=== PATIENT | female | born 1945 | race American Indian/Alaskan Native ===

== ENCOUNTER 2016-04-30 13:25 | Inpatient (IN) | payer MEDICARE ==
[2016-04-30 14:14] LABS: Basophils % (Auto) 0.9 % (0.0-1.8); Eosinophils % (Auto) 0.3 % (0.0-4.3); Hematocrit 41.9 % (30.3-42.9); Mean Corpuscular HGB Conc 31 % (30-34); Mean Corpuscular Hemoglobin 26 pg (28-32); Mean Corpuscular Volume 84 fl (79-97); Platelet Count 200 K/mm3 (140-440); Red Blood Count 4.97 M/mm3 (3.65-5.03); Red Cell Distribution Width 16.6 % (13.2-15.2); White Blood Count 7.7 K/mm3 (4.5-11.0)
[2016-04-30 14:40] LABS: Calcium 10.2 mg/dL (8.4-10.2); Chloride 98.2 mmol/L (98-107); Potassium 3.7 mmol/L (3.6-5.0)
[2016-04-30] MEDS ORDERED: LASIX IV ONE (18:55)
--- NOTE | 2016-04-30 19:00 | Emergency Department Report ---
HPI - General Chief Complaint: Dyspnea/Respdistress Time Seen by Provider: 04/30/16 18:45 - HPI HPI: Room 26 The patient is a 70-year-old female presenting with a chief complaint of shortness of breath. The patient states for 1 month she has had shortness of breath and dyspnea on exertion. The patient states she saw her primary physician 3 weeks ago and the primary physician increase the patient's Lasix to 40 mg daily. The patient states she's been compliant with the Lasix but has not helped her symptoms. Patient admits to bilateral lower extremity edema but denies lower extremity pain. Patient denies chest pain or fever. Patient admits to occasional cough. Location: Lungs, bilateral lower extremities Duration: 1 month Quality: Shortness of breath Severity: Moderate Modifying factors: Exertion causes shortness of breath Context: [see above] Mode of transportation: [not driving] ED Past Medical Hx - Past Medical History Hx Hypertension: Yes Hx Congestive Heart Failure: Yes - Surgical History Hx Internal Defibrillator: Yes Additional Surgical History: TONSILLECTOMY. HYSTERECTOMY - Family History Family history: no significant - Social History Smoking Status: Former Smoker (none 30 years) Substance Use Type: None ED Review of Systems ROS: Stated complaint: SHORTNESS OF BREATH/HX HEART PROBLEMS Other details as noted in HPI Comment: All other systems reviewed and negative Constitutional: denies: chills, fever Eyes: denies: eye pain, eye discharge, vision change ENT: denies: ear pain, throat pain Respiratory: cough, shortness of breath, SOB with exertion Cardiovascular: dyspnea on exertion. denies: chest pain Endocrine: no symptoms reported Gastrointestinal: denies: abdominal pain, nausea, diarrhea Genitourinary: denies: urgency, dysuria, discharge Musculoskeletal: denies: back pain, joint swelling, arthralgia Skin: denies: rash, lesions Neurological: denies: headache, weakness, paresthesias Psychiatric: denies: anxiety, depression Hematological/Lymphatic: other (bilateral lower extremity edema). denies: easy bleeding, easy bruising Physical Exam - Physical Exam Vital Signs: Vital Signs 04/30/16 04/30/16 04/30/16 13:46 18:14 18:17 Temperature 98.5 F 97.8 F Pulse Rate 100 H 100 H Respiratory 22 15 21 Rate Blood Pressure 174/114 Blood Pressure 178/133 [Left] O2 Sat by Pulse 95 100 97 Oximetry Physical Exam: GENERAL: The patient is well-developed well-nourished female lying on stretcher not appearing to be in acute distress. [] HEENT: Normocephalic. Atraumatic. Extraocular motions are intact. Patient has moist mucous membranes. NECK: Supple. Trachea midline CHEST/LUNGS: Clear to auscultation. There is no respiratory distress noted. HEART/CARDIOVASCULAR: Regular. There is no tachycardia. There is no gallop rub or murmur. ABDOMEN: Abdomen is soft, nontender. Patient has normal bowel sounds. There is no abdominal distention. SKIN: There is no rash. There is trace to 1+ bilateral lower extremity pitting edema. There is no diaphoresis. NEURO: The patient is awake, alert, and oriented. The patient is cooperative. The patient has normal speech MUSCULOSKELETAL: There is no calf tenderness bilaterally. There is no evidence of acute injury. ED Course Vital Signs 04/30/16 04/30/16 04/30/16 13:46 18:14 18:17 Temperature 98.5 F 97.8 F Pulse Rate 100 H 100 H Respiratory 22 15 21 Rate Blood Pressure 174/114 Blood Pressure 178/133 [Left] O2 Sat by Pulse 95 100 97 Oximetry ED Medical Decision Making - Lab Data Result diagrams: 04/30/16 13:56 04/30/16 13:56 Laboratory Tests 04/30/16 04/30/16 13:56 13:56 WBC 7.7 RBC 4.97 Hgb 13.0 Hct 41.9 MCV 84 MCH 26 L MCHC 31 RDW 16.6 H Plt Count 200 Lymph % (Auto) 20.6 [place] % (Auto) 7.8 H Eos % (Auto) 0.3 Baso % (Auto) 0.9 Lymph # 1.6 [place] # 0.6 Eos # 0.0 Baso # 0.1 Seg Neutrophils % 70.4 H Seg Neutrophils # 5.4 Sodium 140 Potassium 3.7 Chloride 98.2 Carbon Dioxide 24 Anion Gap 22 BUN 21 H Creatinine 1.4 H Estimated GFR 37 BUN/Creatinine Ratio 15.00 Glucose 181 H Calcium 10.2 Troponin T 0.013 NT-Pro-B Natriuret Pep 7068 H - EKG Data -: EKG Interpreted by Ky Rate: normal - EKG Data When compared to previous EKG there are: previous EKG unavailable 04/30/16 19:03 Ventricularly paced rhythm - Radiology Data Radiology results: image reviewed (chest x-ray) interpreted by me: Chest [id number] - Differential Diagnosis CHF exacerbation, pneumonia, ACS Critical care attestation.: If time is entered above; I have spent that time in minutes in the direct care of this critically ill patient, excluding procedure time. ED Disposition Clinical Impression: CHF exacerbation, Failure of outpatient treatment Disposition: OP ADMITTED IP TO THIS HOSP Is pt being admited?: Yes Does the pt Need Aspirin: Yes Condition: Fair Referrals: DR DARBY [Other] - 3-5 Days Time of Disposition: 19:06 (hospitalist paged)
--- NOTE | 2016-04-30 19:15 | Admit Criteria Form ---
Admission Criteria Documentation: HEART FAILURE: COMMON COMPLICATIONS Clinical Indications for Inpatient Care (Place 'X' for any and all applicable criteria): Ongoing inpatient care may be indicated for heart failure with ANY ONE of the following (1)(2)(3)(4)(5): [ ]I. Ongoing need for care for primary condition requiring frequent therapy adjustments because of changes in cardiac function (eg, drug dosage changes for drugs that are renally metabolized) [ ]II. New-onset heart failure [ ]III. Heart failure with decreased urine output not responsive to attempts to optimize volume status [ ]IV. Acute cardiac ischemia causing or associated with failure [X ]V. Complications of heart failure, including ANY ONE of the following: [ ]a) Pericardial effusion [ ]b) Symptomatic pleural effusion [ ]c) O2 saturation <90% or PO2 < 60 mm Hg (8.0 kPa) on room air or require baseline supplemental O2 [ ]d) Tachypnea [X ]e) Dyspnea [ ]f) Syncope [ ]g) Change in mental status [ ]h) Acute renal insufficiency that is severe (reduction of more than 50% in estimated glomerular filtration rate from baseline) or progressive reduction of more than 25% in estimated glomerular filtration rate from baseline, with creatinine continuing to rise) [ ]i) Hemodynamic instability [ ]j) Anasarca [ ]k) Clinically significant metabolic abnormalities due to heart failure (eg, new-onset metabolic acidosis) Extended stay beyond goal length of stay for primary condition may be needed until ALL of the following are present(1)(3): [ ]a) Stable and effective diuretic regimen established (or patient on stable dialysis regimen if in chronic renal failure) [ ]b) Breathing comfortably at rest [ ]c) Saturation of arterial oxygen greater than 90% or at acceptable baseline [ ]d) Pulmonary edema absent or improved [ ]e) Hemodynamic stability [ ]f) Volume status acceptable on oral medication [ ]g) Peripheral or sacral edema absent or improved [ ]h) Renal function stable and manageable at a lower level of care [ ]i) Complications (eg, pleural effusion) resolved or manageable at a lower level of care [ ]j) Patient or caregiver has received written discharge instructions or educational material addressing activity level, diet, discharge medications, follow-up appointment, weight monitoring, and what to do if symptoms worsen The original [facility] content created by [employer] has been revised. The portions of the content which have been revised are identified through the use of italic text or in bold, and [facility] has neither reviewed nor approved the modified material.All other unmodified content is copyright [facility]. Please see references footnoted in the original [facility] edition 2016 Admission Criteria Met: Yes
[2016-04-30] MEDS ORDERED: CATAPRES PO ONE (19:45)
[2016-04-30] MEDS ORDERED: MILK OF MAGNESIA PO PRN (21:28)
[2016-04-30] MEDS ORDERED: ZOFRAN IV PRN (21:28)
[2016-04-30] MEDS ORDERED: DULCOLAX PR PRN (21:28)
[2016-04-30] MEDS ORDERED: PERCOCET 5/325 PO PRN (21:28)
[2016-04-30] MEDS ORDERED: TYLENOL PO PRN (21:28)
--- NOTE | 2016-04-30 21:36 | History and Physical Report ---
History of Present Illness Date of examination: 04/30/16 Date of admission: 04/30/16 19:06 History of present illness: 70-year-old woman with a history of CHF, hypertension comes emergency room with complaints of shortness of breath, dyspnea and exertion, PND, orthopnea and lower extremity edema. Symptoms have been ongoing 2 weeks but worsened today Patient denies chest pain, palpitation, cough, abdominal pain, hematochezia, dysuria, frequency, focal weakness, dysarthria, fever chills, polydipsia polyuria, hot or cold intolerance, easy bruisability, or rash or bleeding from mucosal membrane, rhinorrhea, epistaxis, earache, tinnitus, blurry vision, eye discharge, anxiety, depression. Other review of systems negative PAST SURGICAL HISTORY: Hysterectomy, tonsillectomy SOCIAL HISTORY: Denies tobacco, alcohol, drugs FAMILY HISTORY: Hypertension Medications and Allergies Allergies Allergy/AdvReac Type Severity Reaction Status Date / Time No Known Allergies Allergy Unverified 04/30/16 13:46 Active Meds: Active Medications Acetaminophen (Tylenol) 650 mg PO Q4H PRN PRN Reason: Pain MILD(1-3)/Fever >100.5/BHATTI Bisacodyl (Dulcolax) 10 mg [place] QDAY PRN PRN Reason: Constipation unrelieved by MOM Carvedilol (Coreg) 6.25 mg PO BID TAYA Furosemide (Lasix) 40 mg IV BID@0600,1800 T[facility] Lisinopril (Zestril) 2.5 mg PO QDAY [facility] Magnesium Hydroxide (Milk Of Magnesia) 30 ml PO Q4H PRN PRN Reason: Constipation Ondansetron HCl (Zofran) 4 mg IV Q8H PRN PRN Reason: N/V unrelieved by Reglan Oxycodone/Acetaminophen (Percocet 5/325) 1 tab PO Q6H PRN PRN Reason: Pain, Moderate (4-6) Exam - Physical Exam Narrative exam: Gen. appearance: Patient lying in bed, no apparent distress HEENT: Normocephalic, atraumatic, pupils equally round and reactive to light, extraocular movement intact, and no sclericterus,. No JVD or thyromegaly or nodule,neck supple, no carotid bruit ,mucous membranes moist, no exudate or erythema Heart: S1, S2, regular rate and rhythm Lungs: Crackles bilaterally, breathing comfortable Abdomen: Positive bowel sounds, nontender, nondistended, no organomegaly Extremity: + edema, no cyanosis, clubbing Skin: No rash, nodules, warm, dry Neuro: Oriented 3, cranial nerves II-12 intact, speech is fluent, motor and sensory intact - Constitutional Vitals: Temp Pulse Resp BP Pulse Ox 97.8 F 89 18 219/133 99 04/30/16 18:14 04/30/16 20:09 04/30/16 19:20 04/30/16 20:09 04/30/16 19:20 Results - Labs CBC & Chem 7: 04/30/16 13:56 04/30/16 13:56 - Imaging and Cardiology EKG: image reviewed Chest x-ray: image reviewed (chf, read by me) Assessment and Plan CHF exacerbation, most likely systolic dysfunction Hypertension uncontrolled Admit to medicine Diurese with IV lasix, Start BB, ACEI, asa Check cardiac enzymes, echo Monitor I/Os, daily weights, consult cardiology Start IV hydralazine as needed for blood pressure control Start dvt prophalaxis
[2016-04-30 22:19] LABS: Creatine Kinase MB 2.9 ng/mL (0.0-4.0)
[2016-04-30] MEDS: COREG PO SCH (23:10)
[2016-05-01] MEDS ORDERED: LASIX IV SCH (06:00)
[2016-05-01 07:45] LABS: Basophils % (Auto) 1.2 % (0.0-1.8); Eosinophils % (Auto) 2.4 % (0.0-4.3); Hematocrit 37.9 % (30.3-42.9); Hemoglobin 11.9 gm/dl (10.1-14.3); Mean Corpuscular HGB Conc 32 % (30-34); Mean Corpuscular Hemoglobin 26 pg (28-32); Mean Corpuscular Volume 83 fl (79-97); Platelet Count 176 K/mm3 (140-440); Red Blood Count 4.56 M/mm3 (3.65-5.03); Red Cell Distribution Width 16.3 % (13.2-15.2); White Blood Count 6.9 K/mm3 (4.5-11.0)
[2016-05-01 08:05] LABS: Creatine Kinase MB 2.7 ng/mL (0.0-4.0)
[2016-05-01 08:07] LABS: BUN/Creatinine Ratio 12.63; Calcium 9.6 mg/dL (8.4-10.2); Chloride 97.6 mmol/L (98-107); Potassium 3.8 mmol/L (3.6-5.0)
--- NOTE | 2016-05-01 08:46 | XRay Report ---
CHEST 2 VIEWS: INDICATION: Shortness of breath. COMPARISON: None similar. FINDINGS: Frontal and lateral chest radiographs demonstrate mild cardiomegaly, aortic knob calcifications, sternotomy wires, left AICD with three dual-chamber leads as also another presumed pericardial lead projecting over the left heart, mildly elevated left hemidiaphragm and osteopenia with few thoracic spine degenerative changes. Pulmonary arterial hypertension possible with somewhat prominent/increased lung markings centrally. Clear remainder lungs without pleural effusions or CHF. CONCLUSION: No acute disease in the chest with various findings, as above, including cardiomegaly and possible pulmonary arterial hypertension. Please correlate clinically and with prior relevant imaging, if available. Thank you for the opportunity to participate in this patient's care.
[2016-05-01] MEDS: ZESTRIL PO SCH (10:30)
[2016-05-01] MEDS: BABY ASPIRIN PO SCH (10:30)
[2016-05-01] MEDS: COREG PO SCH ×2 (10:32→22:24)
--- NOTE | 2016-05-01 11:15 | Consultation ---
History of Present Illness Consult date: 05/01/16 Requesting physician: YORDAN JANG Consult reason: congestive heart failure History of present illness: The patient is a 70 year old female with a history of chronic systolic heart failure, cardiomyopathy s/p ICD implantation, aortic valve replacement, hypertension who presented with complaints of worsening shortness of breath and right leg edema over the past several days. She denies any chest pain, palpitations, nausea, vomiting or diaphoresis. She has chronic orthopnea. BNP 7068. BUN 21 with a creatinine of 1.4. She states that she has been compliant with her medications including lasix. 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 Past History Past Medical History: CAD, diabetes, heart failure (chronic systolic), hypertension, hyperlipidemia, other (cardiomyopathy) Past Surgical History: hysterectomy, tonsillectomy, PTCA, Other (aortic valve replacement, aortic aneurysm repair, ICD) Social history: lives with family, full code. denies: smoking, alcohol abuse, prescription drug abuse, IV drug use Family history: no significant family history Medications and Allergies Allergies Allergy/AdvReac Type Severity Reaction Status Date / Time No Known Allergies Allergy Unverified 04/30/16 13:46 Active Meds: Active Medications Acetaminophen (Tylenol) 650 mg PO Q4H PRN PRN Reason: Pain MILD(1-3)/Fever >100.5/BHATTI Aspirin (Baby Aspirin) 81 mg PO QDAY [facility] Last Admin: 05/01/16 10:30 Dose: 81 mg Bisacodyl (Dulcolax) 10 mg [place] QDAY PRN PRN Reason: Constipation unrelieved by MOM Carvedilol (Coreg) 6.25 mg PO BID [facility] Last Admin: 05/01/16 10:32 Dose: 6.25 mg Furosemide (Lasix) 40 mg IV BID@0600,1800 [facility] Last Admin: 05/01/16 05:33 Dose: 40 mg Lisinopril (Zestril) 2.5 mg PO QDAY [facility] Last Admin: 05/01/16 10:30 Dose: 2.5 mg Magnesium Hydroxide (Milk Of Magnesia) 30 ml PO Q4H PRN PRN Reason: Constipation Ondansetron HCl (Zofran) 4 mg IV Q8H PRN PRN Reason: N/V unrelieved by Reglan Oxycodone/Acetaminophen (Percocet 5/325) 1 tab PO Q6H PRN PRN Reason: Pain, Moderate (4-6) Pneumococcal Polyvalent Vaccine (Pneumovax 23) 0.5 ml IM .ONCE ONE Stop: 05/01/16 12:01 Review of Systems Constitutional: no fever, no chills Ears, nose, mouth and throat: no nasal congestion, no nasal discharge, no sinus pressure Cardiovascular: orthopnea, shortness of breath, dyspnea on exertion, leg edema, no chest pain, no palpitations Respiratory: shortness of breath, dyspnea on exertion, no cough, no congestion, no wheezing Gastrointestinal: no abdominal pain, no nausea, no vomiting, no diarrhea Genitourinary Female: no dysuria, no urgency Musculoskeletal: no neck stiffness, no neck pain, no myalgias Integumentary: no rash, no pruritis Neurological: no parathesias, no numbness, no tingling, no headaches Endocrine: no cold intolerance, no heat intolerance Hematologic/Lymphatic: no easy bruising, no easy bleeding Allergic/Immunologic: no urticaria, no wheezing Physical Examination Vital Signs Temp Pulse Resp BP Pulse Ox 98.5 F 100 H 22 174/114 95 04/30/16 13:46 04/30/16 13:46 04/30/16 13:46 04/30/16 13:46 04/30/16 13:46 General appearance: no acute distress, obese HEENT: Positive: Normocephaly, Mucus Membranes Moist Neck: Positive: neck supple, trachea midline Cardiac: Positive: Reg Rate and Rhythm, S1/S2 Lungs: Positive: Decreased Breath Sounds Neuro: Positive: Grossly Intact Abdomen: Positive: Soft, Active Bowel Sounds. Negative: Tender Extremities: Present: edema (trace edema-left lower leg), +1 Edema (right lower leg) Results 05/01/16 07:15 05/01/16 07:15 Cardiac Enzymes 04/30/16 05/01/16 Range/Units 21:47 07:15 CK-MB (CK-2) 2.9 2.7 (0.0-4.0) ng/mL CBC 05/01/16 Range/Units 07:15 WBC 6.9 (4.5-11.0) K/mm3 RBC 4.56 (3.65-5.03) M/mm3 Hgb 11.9 (10.1-14.3) gm/dl Hct 37.9 (30.3-42.9) % Plt Count 176 (140-440) K/mm3 Lymph # 1.6 (1.2-5.4) K/mm3 [place] # 0.7 (0.0-0.8) K/mm3 Eos # 0.2 (0.0-0.4) K/mm3 Baso # 0.1 (0.0-0.1) K/mm3 Comprehensive Metabolic Panel 05/01/16 Range/Units 07:15 Sodium 138 (137-145) mmol/L Potassium 3.8 (3.6-5.0) mmol/L Chloride 97.6 L (98-107) mmol/L Carbon Dioxide 27 (22-30) mmol/L BUN 24 H (7-17) mg/dL Creatinine 1.9 H (0.7-1.2) mg/dL Glucose 142 H (65-100) mg/dL Calcium 9.6 (8.4-10.2) mg/dL - Imaging and Cardiology Echo: pending EKG: image reviewed EKG interpretations - Telemetry EKG Rhythm: Sinus Rhythm Pacemaker: ventricular pacing w/capt Assessment and Plan Acute on chronic systolic heart failure await echo findings clinically improving continue lasix, coreg, lisinopril Cardiomyopathy s/p ICD/pacemaker CAD s/p PCI of RCA with BMS (09/2012) Chronic kidney disease monitor renal indices Hypertension Hyperlipidemia Diabetes Hx. of aortic valve replacement (06/2013) Hx. of aortic aneurysm repair (06/2013) Agree with current regimen. Await echo findings. The patient has been seen in conjunction with Dr. Churchill who agrees with the assessment and plan of care. Thank you Dr. Jang for allowing us to participate in the care of this patient.
[2016-05-01] MEDS ORDERED: PNEUMOVAX 23 IM ONE (12:00)
--- NOTE | 2016-05-01 13:45 | Progress Note ---
Assessment and Plan Assessment and plan: Patient is a 70-year-old woman with a history of CHF, hypertension comes emergency room with complaints of shortness of breath, dyspnea and exertion, PND , orthopnea and lower extremity edema. Symptoms have been ongoing 2 weeks but worsened on the day of admission. Patient denies chest pain, palpitation, cough , abdominal pain, hematochezia, dysuria, frequency, focal weakness, dysarthria, fever chills, polydipsia polyuria, hot or cold intolerance, easy bruisability, or rash or bleeding from mucosal membrane, rhinorrhea, epistaxis, earache, tinnitus, blurry vision, eye discharge, anxiety, depression. Other review of systems negative * Acute on chronic systolic congestive heart failure * Hypertensive urgency * Acute kidney injury on Chronic kidney disease-Unknown baseline. POA creatinine was 1.4 and admission now 1.9 * Hyperlipidemia * Diabetes mellitus * History of aortic valve replacement in 2013 with aortic aneurysmal repair * CAD-s/p PCI of RCA with BMS (09/2012) * Cardiomyopathy- s/p ICD/pacemaker Plan * Continue current treatments possible switch to by mouth Lasix * Accu-Cheks before meals and daily at bedtime * Continue beta jose m, HORTENCIA inhibitor, aspirin * Continue daily weights and monitor ins and outs * Cardiology input noted * Request records from primary care physician * Echocardiogram pending * DVT and GI prophylaxis * Plan of care discussed with the patient and also with cardiology in detail. History Interval history: [id number] Patient seen and examined this morning in no acute distress Denies any chest pain, nausea, vomiting, diarrhea No fever noted blood pressure controlled No adverse events reported to me by nursing staff Hospitalist Physical - Physical exam Narrative exam: VITAL SIGNS: Reviewed. GENERAL: The patient appeared well nourished and normally developed. Vital signs as documented. HEAD: No signs of head trauma. EYES: Pupils are equal. Extraocular motions intact. EARS: Hearing grossly intact. MOUTH: Oropharynx is normal. NECK: No adenopathy, no JVD. CHEST: Chest with clear breath sounds bilaterally. No wheezes, rales, or rhonchi. CARDIAC: Regular rate and rhythm. S1 and S2, with 3/5 diastolic murmur, otherwise no gallops, or rubs. VASCULAR: Trace bilateral pedal edema. Peripheral pulses normal and equal in all extremities. ABDOMEN: Soft, without detectable tenderness. No sign of distention. No rebound or guarding, and no masses palpated. Bowel Sounds normal. MUSCULOSKELETAL: Good range of motion of all major joints. Extremities without clubbing, cyanosis NEUROLOGIC EXAM: Little drowsy this morning awake and oriented x 3. No focal sensory or strength deficits. Speech normal. Follows commands. PSYCHIATRIC: Mood normal. SKIN: No rash or lesions. - Constitutional Vitals: Temp Pulse Resp BP Pulse Ox 97.4 F L 75 18 153/65 98 05/01/16 10:57 05/01/16 10:57 05/01/16 10:57 05/01/16 10:57 05/01/16 10:57 General appearance: Present: no acute distress, obese Results - Labs CBC & Chem 7: 05/01/16 07:15 05/01/16 07:15 Labs: Laboratory Last Values WBC 6.9 K/mm3 (4.5-11.0) 05/01/16 07:15 RBC 4.56 M/mm3 (3.65-5.03) 05/01/16 07:15 Hgb 11.9 gm/dl (10.1-14.3) 05/01/16 07:15 Hct 37.9 % (30.3-42.9) 05/01/16 07:15 MCV 83 fl (79-97) 05/01/16 07:15 MCH 26 pg (28-32) L 05/01/16 07:15 MCHC 32 % (30-34) 05/01/16 07:15 RDW 16.3 % (13.2-15.2) H 05/01/16 07:15 Plt Count 176 K/mm3 (140-440) 05/01/16 07:15 Lymph % (Auto) 23.1 % (13.4-35.0) 05/01/16 07:15 Drew % (Auto) 10.3 % (0.0-7.3) H 05/01/16 07:15 Eos % (Auto) 2.4 % (0.0-4.3) 05/01/16 07:15 Baso % (Auto) 1.2 % (0.0-1.8) 05/01/16 07:15 Lymph # 1.6 K/mm3 (1.2-5.4) 05/01/16 07:15 Drew # 0.7 K/mm3 (0.0-0.8) 05/01/16 07:15 Eos # 0.2 K/mm3 (0.0-0.4) 05/01/16 07:15 Baso # 0.1 K/mm3 (0.0-0.1) 05/01/16 07:15 Seg Neutrophils % 63.0 % (40.0-70.0) 05/01/16 07:15 Seg Neutrophils # 4.4 K/mm3 (1.8-7.7) 05/01/16 07:15 Sodium 138 mmol/L (137-145) 05/01/16 07:15 Potassium 3.8 mmol/L (3.6-5.0) 05/01/16 07:15 Chloride 97.6 mmol/L (98-107) L 05/01/16 07:15 Carbon Dioxide 27 mmol/L (22-30) 05/01/16 07:15 Anion Gap 17 mmol/L 05/01/16 07:15 BUN 24 mg/dL (7-17) H 05/01/16 07:15 Creatinine 1.9 mg/dL (0.7-1.2) H 05/01/16 07:15 Estimated GFR 32 ml/min 05/01/16 07:15 BUN/Creatinine Ratio 12.63 % 05/01/16 07:15 Glucose 142 mg/dL (65-100) H 05/01/16 07:15 Calcium 9.6 mg/dL (8.4-10.2) 05/01/16 07:15 Total Creatine Kinase 84 units/L (30-135) 05/01/16 07:15 CK-MB (CK-2) 2.7 ng/mL (0.0-4.0) 05/01/16 07:15 CK-MB (CK-2) Rel Index 3.2 (0-4) 05/01/16 07:15 Troponin T 0.027 ng/mL (0.00-0.029) 05/01/16 07:15 NT-Pro-B Natriuret Pep 7068 pg/mL (0-900) H 04/30/16 13:56 - Imaging and Cardiology EKG: image reviewed (ventricular paced rhythm) Chest x-ray: image reviewed (no acute pathology noted)
[2016-05-01] MEDS: LASIX PO SCH (17:18)
[2016-05-01] MEDS ORDERED: AMBIEN PO PRN (23:56)
[2016-05-02 06:14] LABS: BUN/Creatinine Ratio 18.42; Chloride 98.2 mmol/L (98-107); Potassium 3.7 mmol/L (3.6-5.0)
[2016-05-02] MEDS: LASIX PO SCH ×2 (06:17→19:00)
--- NOTE | 2016-05-02 09:30 | Consultation ---
History of Present Illness - Reason for Consult Consult date: 05/02/16 acute renal failure, chronic renal failure - History of Present Illness The patient is a 70 year old AAF with history significant for Hypertension, Obesity, chronic systolic heart failure, Cardiomyopathy s/p ICD implantation, S/ p aortic valve replacement and Chronic Kidney disease who presented with complaints of worsening shortness of breath and right leg edema for the past several days. Patient denies h/o chest pain, cough, hemoptysis, palpitations, wheezing, nausea, vomiting, abd pain, fever, dizziness, syncope or diaphoresis. No h/o kidney stone, NSAID USE or recurrent UTIs. Initial labs showed BNP 7068, BUN 21 and creatinine 1.4, which increased to 1.9 today. Patient was diagnosed with CKD about year and a half ago. She is not sure if she has seen a Clinical Laboratory Aide. Past History Past Medical History: CAD, diabetes, heart failure (chronic systolic), hypertension, hyperlipidemia, other (cardiomyopathy) Past Surgical History: hysterectomy, tonsillectomy, PTCA, Other (aortic valve replacement, aortic aneurysm repair, ICD) Social history: lives with family, full code. denies: smoking, alcohol abuse, prescription drug abuse, IV drug use Family history: no significant family history Medications and Allergies Allergies Allergy/AdvReac Type Severity Reaction Status Date / Time No Known Allergies Allergy Unverified 04/30/16 13:46 Active Meds: Active Medications Acetaminophen (Tylenol) 650 mg PO Q4H PRN PRN Reason: Pain MILD(1-3)/Fever >100.5/BHATTI Aspirin (Baby Aspirin) 81 mg PO QDAY [facility] Last Admin: 05/01/16 10:30 Dose: 81 mg Bisacodyl (Dulcolax) 10 mg NE QDAY PRN PRN Reason: Constipation unrelieved by MOM Carvedilol (Coreg) 6.25 mg PO BID [facility] Last Admin: 05/01/16 22:24 Dose: 6.25 mg Furosemide (Lasix) 40 mg PO 0600,1800 [facility] Last Admin: 05/02/16 06:17 Dose: 40 mg Lisinopril (Zestril) 2.5 mg PO QDAY [facility] Last Admin: 05/01/16 10:30 Dose: 2.5 mg Magnesium Hydroxide (Milk Of Magnesia) 30 ml PO Q4H PRN PRN Reason: Constipation Ondansetron HCl (Zofran) 4 mg IV Q8H PRN PRN Reason: N/V unrelieved by Reglan Oxycodone/Acetaminophen (Percocet 5/325) 1 tab PO Q6H PRN PRN Reason: Pain, Moderate (4-6) Zolpidem Tartrate (Ambien) 5 mg PO QHS PRN PRN Reason: Sleep Last Admin: 05/02/16 00:16 Dose: 5 mg Review of Systems Constitutional: no fever, no chills, no anorexia Ears, nose, mouth and throat: no sinus pain, no epistaxis Breasts: deferred Cardiovascular: orthopnea, edema, shortness of breath, dyspnea on exertion, leg edema, no chest pain, no lightheadedness Respiratory: no cough, no hemoptysis, no wheezing Gastrointestinal: no abdominal pain, no nausea, no vomiting, no melena Genitourinary Female: no dysuria, no hematuria Rectal: no bleeding Musculoskeletal: no neck stiffness, no redness of joints Integumentary: no rash, no wounds, no jaundice Neurological: no head injury, no paralysis, no seizures Endocrine: no weight change Hematologic/Lymphatic: no easy bleeding Allergic/Immunologic: no urticaria Exam - Vital Signs Vital signs: Vital Signs Temp Pulse Resp BP Pulse Ox 98.5 F 100 H 22 174/114 95 04/30/16 13:46 04/30/16 13:46 04/30/16 13:46 04/30/16 13:46 04/30/16 13:46 - General Appearance General appearance: well-developed, well-nourished, other (no distress) EENT: PERRL, mucous membranes moist, hearing intact, vision intact Neck: Present: neck supple, trachea midline Respiratory: Clear to Ascultation Heart: regular, S1S2, no murmurs Gastrointestinal: Present: normoactive bowel sounds. Absent: tenderness, distended Integumentary: no rash, warm and dry Neurologic: no focal deficit, no asterixis, alert and oriented x3, CN 3-12 intact Musculoskeletal: Present: other (no edema) Psychiatric: mood/affect appropriate, cooperative Results - Lab Results 05/01/16 07:15 05/03/16 04:00 Most recent lab results Calcium 9.0 mg/dL (8.4-10.2) 05/02/16 05:29 Assessment and Plan - Patient Problems (1) JOHNNIE (acute kidney injury) Current Visit: Yes Status: Acute Plan to address problem: Acute Kidney Injury superimposed on CKD (?stage) in the setting of CHF exacerbation. Patient is hemodynamically stable. Baseline renal function is unknown. Renal US ordered. (2) CHF exacerbation Current Visit: Yes Status: Acute Qualifiers: Congestive heart failure type: C Plan to address problem: Followed by Cards. (3) Essential (primary) hypertension Current Visit: Yes Status: Chronic Plan to address problem: BP is fair. (4) CAD (coronary artery disease) Current Visit: Yes Status: Chronic Qualifiers: Coronary Disease-Associated Artery/Lesion type: C [place] vs. transplanted heart: N Associated angina: A
--- NOTE | 2016-05-02 10:37 | Progress Note ---
Assessment and Plan Acute on chronic systolic heart failure clinically improving Echo 04/2016: mod LVH, EF 15-20% continue lasix, coreg, lisinopril Cardiomyopathy s/p ICD/pacemaker CAD s/p PCI of RCA with BMS (09/2012) Chronic kidney disease monitor renal indices nephrology following Hypertension Hyperlipidemia Diabetes Hx. of aortic valve replacement (06/2013) Hx. of aortic aneurysm repair (06/2013) Continue current management and close monitoring of volume status and renal indices. The patient has been seen in conjunction with Dr. Churchill who agrees with the assessment and plan of care. Subjective Date of service: 05/02/16 Principal diagnosis: acute on chronic heart failure Interval history: The patient is resting comfortably in bed. Shortness of breath resolved. Paced rhythm on the monitor. Objective Last Vital Signs Temp 97.8 F 05/02/16 06:00 Pulse 76 05/02/16 06:35 Resp 18 05/02/16 06:00 BP 117/69 05/02/16 06:00 Pulse Ox 97 05/02/16 06:00 - Physical Examination General: No Apparent Distress HEENT: Positive: Normocephaly, Mucus Membranes Moist Neck: Positive: neck supple, trachea midline Cardiac: Positive: Reg Rate and Rhythm, S1/S2 Lungs: Positive: clear to auscultation Neuro: Positive: Grossly Intact Abdomen: Positive: Soft, Active Bowel Sounds. Negative: Tender Extremities: Absent: edema - Labs and Meds Lipids 05/02/16 Range/Units 05:29 Triglycerides 100 (2-149) mg/dL Cholesterol 165 (50-199) mg/dL HDL Cholesterol 48 (40-59) mg/dL Cholesterol/HDL Ratio 3.43 % Comprehensive Metabolic Panel 05/02/16 Range/Units 05:29 Sodium 140 (137-145) mmol/L Potassium 3.7 (3.6-5.0) mmol/L Chloride 98.2 (98-107) mmol/L Carbon Dioxide 28 (22-30) mmol/L BUN 35 H (7-17) mg/dL Creatinine 1.9 H (0.7-1.2) mg/dL Glucose 156 H (65-100) mg/dL Calcium 9.0 (8.4-10.2) mg/dL - Imaging and Cardiology EKG: image reviewed (ventricular paced rhythm) Echo: report reviewed (04/2016: moderate LVH, EF 15-20%, impaired relaxation, mild-moderate MR) - Telemetry EKG Rhythm: Paced Pacemaker: ventricular pacing w/capt
[2016-05-02] MEDS: BABY ASPIRIN PO SCH (10:55)
[2016-05-02] MEDS: ZESTRIL PO SCH (10:55)
[2016-05-02] MEDS: COREG PO SCH ×2 (10:55→22:57)
--- NOTE | 2016-05-02 14:08 | Query- Renal Failure ---
Porsha Cat____Nadiya Date:____05/02/16 [employer] Manager/CDS:____Mason Riley Phone#:___[phone] Exercise your independent professional judgment when responding to query. Questions asked do not imply a particular answer is desired or expected. We greatly appreciate your clarification on this issue. Clinical Documentation States: 70 year old female was admitted on 04/30/16. The progress note states " Acute kidney injury on chronic kidney disease. POA creatinine was 1.4 and admission now 1.9 " Clinical Findings Show: 04/30/16 05/02/16 Creatinine: 1.4 1.9 Please clarify if you mean: Acute Renal Failure with or due to: [ ] Tubular Necrosis [ ] Medullary Necrosis [X ] Vasomotor Nephropathy [ ] Shock Kidney [ ] Tubular Nephrosis [ ] Renal Tubular Stasis [ ] Cortical Necrosis [ ] Acute Renal Failure (unspecified) [ ] Lower Tubular Nephrosis [ ] Other: [ ] Not Applicable Present on Admission: [X ] Yes (Y) [ ] Clinically undeterminable (W) [ ] No (N) Please also document response in your Progress Notes and/or Discharge Summary and indicate if the condition was present on admission. MTDD
[2016-05-02] MEDS ORDERED: PROVENTIL IH PRN (16:09)
--- NOTE | 2016-05-02 16:09 | Progress Note ---
Assessment and Plan Assessment and plan: Patient is a 70-year-old woman with a history of CHF, hypertension comes emergency room with complaints of shortness of breath, dyspnea and exertion, PND , orthopnea and lower extremity edema. Symptoms have been ongoing 2 weeks but worsened on the day of admission. Patient denies chest pain, palpitation, cough , abdominal pain, hematochezia, dysuria, frequency, focal weakness, dysarthria, fever chills, polydipsia polyuria, hot or cold intolerance, easy bruisability, or rash or bleeding from mucosal membrane, rhinorrhea, epistaxis, earache, tinnitus, blurry vision, eye discharge, anxiety, depression. Other review of systems negative * Acute on chronic systolic congestive heart failure * Hypertensive urgency-better controlled * Acute kidney injury on Chronic kidney disease-Unknown baseline. POA creatinine was 1.4 and admission now 1.9 * Hyperlipidemia * Acute dyspnea-resolved * Diabetes mellitus * History of aortic valve replacement in 2013 with aortic aneurysmal repair * CAD-s/p PCI of RCA with BMS (09/2012) * Cardiomyopathy- s/p ICD/pacemaker Plan * Continue current treatments possible switch to by mouth Lasix * Patient a bit apprehensive this morning, anxious. We'll continue to monitor for the next 24 hours continue nebulizer treatment. * Accu-Cheks before meals and daily at bedtime * Continue beta jose m, may need to hold HORTENCIA inhibitor's concern was no renal function. Continue aspirin * Continue daily weights and monitor ins and outs * Cardiology input noted * Request records from primary care physician * Consult field health officer for worsening renal function * DVT and GI prophylaxis * Plan of care discussed with the patient and also with cardiology in detail. History Interval history: [id number] Patient seen and examined this morning in no acute distress. Reports some mild shortness of breath this morning. Appears anxious otherwise. Denies any chest pain, nausea, vomiting, diarrhea No fever noted blood pressure controlled No adverse events reported to me by nursing staff Hospitalist Physical - Physical exam Narrative exam: VITAL SIGNS: Reviewed. GENERAL: The patient appeared well nourished and normally developed. Vital signs as documented. HEAD: No signs of head trauma. EYES: Pupils are equal. Extraocular motions intact. EARS: Hearing grossly intact. MOUTH: Oropharynx is normal. NECK: No adenopathy, no JVD. CHEST: Chest with clear breath sounds bilaterally. No wheezes, rales, or rhonchi. CARDIAC: Regular rate and rhythm. S1 and S2, with 3/5 diastolic murmur, otherwise no gallops, or rubs. VASCULAR: Trace bilateral pedal edema. Peripheral pulses normal and equal in all extremities. ABDOMEN: Soft, without detectable tenderness. No sign of distention. No rebound or guarding, and no masses palpated. Bowel Sounds normal. MUSCULOSKELETAL: Good range of motion of all major joints. Extremities without clubbing, cyanosis NEUROLOGIC EXAM: awake and oriented x 3. No focal sensory or strength deficits. Speech normal. Follows commands. PSYCHIATRIC: Mood anxious. SKIN: No rash or lesions. - Constitutional Vitals: Temp Pulse Resp BP Pulse Ox 97.6 F 93 H 22 149/73 97 05/02/16 12:00 05/02/16 12:00 05/02/16 12:00 05/02/16 12:00 05/02/16 12:00 General appearance: Present: no acute distress, obese Results - Labs CBC & Chem 7: 05/01/16 07:15 05/02/16 05:29 Labs: Laboratory Last Values WBC 6.9 K/mm3 (4.5-11.0) 05/01/16 07:15 RBC 4.56 M/mm3 (3.65-5.03) 05/01/16 07:15 Hgb 11.9 gm/dl (10.1-14.3) 05/01/16 07:15 Hct 37.9 % (30.3-42.9) 05/01/16 07:15 MCV 83 fl (79-97) 05/01/16 07:15 MCH 26 pg (28-32) L 05/01/16 07:15 MCHC 32 % (30-34) 05/01/16 07:15 RDW 16.3 % (13.2-15.2) H 05/01/16 07:15 Plt Count 176 K/mm3 (140-440) 05/01/16 07:15 Lymph % (Auto) 23.1 % (13.4-35.0) 05/01/16 07:15 [place] % (Auto) 10.3 % (0.0-7.3) H 05/01/16 07:15 Eos % (Auto) 2.4 % (0.0-4.3) 05/01/16 07:15 Baso % (Auto) 1.2 % (0.0-1.8) 05/01/16 07:15 Lymph # 1.6 K/mm3 (1.2-5.4) 05/01/16 07:15 [place] # 0.7 K/mm3 (0.0-0.8) 05/01/16 07:15 Eos # 0.2 K/mm3 (0.0-0.4) 05/01/16 07:15 Baso # 0.1 K/mm3 (0.0-0.1) 05/01/16 07:15 Seg Neutrophils % 63.0 % (40.0-70.0) 05/01/16 07:15 Seg Neutrophils # 4.4 K/mm3 (1.8-7.7) 05/01/16 07:15 Sodium 140 mmol/L (137-145) 05/02/16 05:29 Potassium 3.7 mmol/L (3.6-5.0) 05/02/16 05:29 Chloride 98.2 mmol/L (98-107) 05/02/16 05:29 Carbon Dioxide 28 mmol/L (22-30) 05/02/16 05:29 Anion Gap 18 mmol/L 05/02/16 05:29 BUN 35 mg/dL (7-17) H 05/02/16 05:29 Creatinine 1.9 mg/dL (0.7-1.2) H 05/02/16 05:29 Estimated GFR 32 ml/min 05/02/16 05:29 BUN/Creatinine Ratio 18.42 % 05/02/16 05:29 Glucose 156 mg/dL (65-100) H 05/02/16 05:29 Calcium 9.0 mg/dL (8.4-10.2) 05/02/16 05:29 Total Creatine Kinase 84 units/L (30-135) 05/01/16 07:15 CK-MB (CK-2) 2.7 ng/mL (0.0-4.0) 05/01/16 07:15 CK-MB (CK-2) Rel Index 3.2 (0-4) 05/01/16 07:15 Troponin T 0.027 ng/mL (0.00-0.029) 05/01/16 07:15 NT-Pro-B Natriuret Pep 7068 pg/mL (0-900) H 04/30/16 13:56 Triglycerides 100 mg/dL (2-149) 05/02/16 05:29 Cholesterol 165 mg/dL (50-199) 05/02/16 05:29 LDL Cholesterol Direct 97 mg/dL (50-130) 05/02/16 05:29 HDL Cholesterol 48 mg/dL (40-59) 05/02/16 05:29 Cholesterol/HDL Ratio 3.43 % 05/02/16 05:29
[2016-05-02] MEDS ORDERED: DUONEB 0.5 MG-3 MG/3 ML SOLN IH SCH (20:00)
[2016-05-03 06:12] LABS: Anion Gap 19 mmol/L; BUN/Creatinine Ratio 21.66; Blood Urea Nitrogen 39 mg/dL (7-17); Calcium 9.1 mg/dL (8.4-10.2); Carbon Dioxide 27 mmol/L (22-30); Chloride 98.4 mmol/L (98-107); Glucose 145 mg/dL (65-100); Magnesium 2.1 mg/dL (1.7-2.3); Potassium 3.9 mmol/L (3.6-5.0); Sodium 140 mmol/L (137-145)
--- NOTE | 2016-05-03 07:41 | Progress Note ---
Assessment and Plan - Patient Problems (1) JOHNNIE (acute kidney injury) Current Visit: Yes Status: Acute Plan to address problem: Acute Kidney Injury superimposed on CKD (?stage) in the setting of CHF exacerbation. Patient is hemodynamically stable. Creatinine is unchanged since yesterday. Baseline renal function is unknown. Renal US is negative. (2) CHF exacerbation Current Visit: Yes Status: Acute Qualifiers: Congestive heart failure type: C Plan to address problem: Improving. Continue Lasix. (3) CAD (coronary artery disease) Current Visit: Yes Status: Chronic Qualifiers: Coronary Disease-Associated Artery/Lesion type: C [place] vs. transplanted heart: N Associated angina: A (4) Essential (primary) hypertension Current Visit: Yes Status: Chronic Plan to address problem: BP is fair. Subjective Date of service: 05/03/16 Principal diagnosis: acute on chronic heart failure Interval history: Patient is feeling better. Objective - Vital Signs Vital signs: Vital Signs - 12hr 05/02/16 05/02/16 05/02/16 20:00 20:16 20:21 Temperature 97.9 F Pulse Rate Pulse Rate [ Left Radial] Pulse Rate [ 80 Right Radial] Pulse Rate [ 84 Throughout] Respiratory 18 Rate Respiratory 18 Rate [ Throughout] Blood Pressure Blood Pressure 136/63 [Left Radial Artery] O2 Sat by Pulse 97 100 Oximetry 05/02/16 05/02/16 05/03/16 20:36 22:57 00:00 Temperature 98.3 F Pulse Rate 80 Pulse Rate [ Left Radial] Pulse Rate [ 79 Right Radial] Pulse Rate [ 86 Throughout] Respiratory 18 Rate Respiratory 18 Rate [ Throughout] Blood Pressure 136/63 Blood Pressure 148/87 [Left Radial Artery] O2 Sat by Pulse 98 Oximetry 05/03/16 05/03/16 05/03/16 00:25 04:00 06:53 Temperature 98.2 F 98.2 F 98.3 F Pulse Rate Pulse Rate [ 76 Left Radial] Pulse Rate [ 79 73 Right Radial] Pulse Rate [ Throughout] Respiratory 20 18 18 Rate Respiratory Rate [ Throughout] Blood Pressure Blood Pressure 144/79 144/76 148/80 [Left Radial Artery] O2 Sat by Pulse 98 95 94 Oximetry - General Appearance General appearance: well-developed, well-nourished, obese, other (no distress) EENT: PERRL, mucous membranes moist, hearing intact, vision intact Neck: supple Respiratory: Present: Rales (faint) Cardiology: regular, S1S2, no murmurs Gastrointestinal: normoactive bowel sounds, no tenderness, no distended Integumentary: no rash, warm and dry Neurologic: no focal deficit, no asterixis, alert and oriented x3, CN 3-12 intact Musculoskeletal: other (no edema) Psychiatric: mood/affect appropriate, cooperative - Lab 05/01/16 07:15 05/03/16 04:00 Most recent lab results Calcium 9.1 mg/dL (8.4-10.2) 05/03/16 04:00 Magnesium 2.1 mg/dL (1.7-2.3) 05/03/16 04:00
[2016-05-03] MEDS: COREG PO SCH ×2 (09:31→23:03)
[2016-05-03] MEDS: BABY ASPIRIN PO SCH (09:33)
[2016-05-03] MEDS: ZESTRIL PO SCH (09:33)
--- NOTE | 2016-05-03 11:00 | Progress Note ---
Assessment and Plan Acute on chronic systolic heart failure clinically improving Echo 04/2016: mod LVH, EF 15-20% continue lasix, coreg, lisinopril Cardiomyopathy s/p ICD/pacemaker CAD s/p PCI of RCA with BMS (09/2012) Chronic kidney disease monitor renal indices nephrology following Hypertension Hyperlipidemia Diabetes Hx. of aortic valve replacement (06/2013) Hx. of aortic aneurysm repair (06/2013) Stable cardiac status. Continue current management and close monitoring of volume status and renal indices. The patient has been seen in conjunction with Dr. Churchill who agrees with the assessment and plan of care. Subjective Date of service: 05/03/16 Principal diagnosis: acute on chronic heart failure Interval history: The patient is resting in bed. No new complaints. Paced rhythm on the monitor. Objective Last Vital Signs Temp 98.2 F 05/03/16 09:15 Pulse 75 05/03/16 14:00 Resp 18 05/03/16 09:36 BP 165/94 05/03/16 09:33 Pulse Ox 95 05/03/16 09:36 - Physical Examination General: No Apparent Distress HEENT: Positive: Normocephaly, Mucus Membranes Moist Neck: Positive: neck supple, trachea midline Cardiac: Positive: Reg Rate and Rhythm, S1/S2 Lungs: Positive: clear to auscultation Neuro: Positive: Grossly Intact Abdomen: Positive: Soft, Active Bowel Sounds. Negative: Tender Skin: Positive: Clear. Negative: Rash Extremities: Absent: edema - Labs and Meds Comprehensive Metabolic Panel 05/03/16 Range/Units 04:00 Sodium 140 (137-145) mmol/L Potassium 3.9 (3.6-5.0) mmol/L Chloride 98.4 (98-107) mmol/L Carbon Dioxide 27 (22-30) mmol/L BUN 39 H (7-17) mg/dL Creatinine 1.8 H (0.7-1.2) mg/dL Glucose 145 H (65-100) mg/dL Calcium 9.1 (8.4-10.2) mg/dL - Imaging and Cardiology EKG: image reviewed (ventricular paced rhythm) Echo: report reviewed (04/2016: moderate LVH, EF 15-20%, impaired relaxation, mild-moderate MR) - Telemetry EKG Rhythm: Paced Pacemaker: ventricular pacing w/capt
--- NOTE | 2016-05-03 11:47 | Ultrasound Report ---
ULTRASOUND RENAL BILATERAL: HISTORY: Renal failure. FINDINGS: The right kidney measures 10.5 cm. There are 2 cysts in the mid right kidney measuring 1.0 cm and 1.4 cm. There is also a relatively large cortical calcification in the inferior right kidney. This does not appear to represent a renal stone. The left kidney measures 10.0 cm. No focal left renal lesion. Both kidneys are echogenic consistent with medical renal disease or acute renal failure. There is no evidence for hydronephrosis or perinephric fluid. IMPRESSION: Echogenic kidneys consistent with medical renal disease or acute renal failure. Simple right renal cysts. No obstructive uropathy.
--- NOTE | 2016-05-03 14:23 | Progress Note ---
Assessment and Plan Assessment and plan: * Acute on chronic systolic congestive heart failure * Hypertensive urgency-better controlled * Acute kidney injury on Chronic kidney disease-Unknown baseline. POA creatinine was 1.4 and admission now 1.9 * Hyperlipidemia * Acute dyspnea-resolved * Diabetes mellitus * History of aortic valve replacement in 2013 with aortic aneurysmal repair * CAD-s/p PCI of RCA with BMS (09/2012) * Cardiomyopathy- s/p ICD/pacemaker Plan * Continue Lasix by mouth * Accu-Cheks before meals and daily at bedtime * Continue beta jose m, may need to hold HORTENCIA inhibitor's concern was no renal function. Defer to cardiology. Continue aspirin * Continue daily weights and monitor ins and outs * Request records from primary care physician * Consult deer farmer for worsening renal function * DVT and GI prophylaxis History Interval history: No new issues overnight. Hospitalist Physical - Constitutional Vitals: Temp Pulse Resp BP Pulse Ox 98.2 F 80 18 165/94 95 05/03/16 09:15 05/03/16 09:36 05/03/16 09:36 05/03/16 09:33 05/03/16 09:36 General appearance: Present: no acute distress, obese - EENT Eyes: Present: PERRL, EOM intact ENT: hearing intact, clear oral mucosa, dentition normal - Neck Neck: Present: supple, normal ROM - Respiratory Respiratory effort: normal Respiratory: bilateral: diminished, rales - Cardiovascular Rhythm: regular Heart Sounds: Present: S1 & S2. Absent: gallop, rub - Extremities Extremities: no ischemia, No edema, Full ROM - Abdominal General gastrointestinal: soft, non-tender, non-distended, normal bowel sounds - Integumentary Integumentary: Present: clear, warm, dry - Neurologic Neurologic: CNII-XII intact, moves all extremities Results - Labs CBC & Chem 7: 05/01/16 07:15 05/03/16 04:00 Labs: Laboratory Last Values WBC 6.9 K/mm3 (4.5-11.0) 05/01/16 07:15 RBC 4.56 M/mm3 (3.65-5.03) 05/01/16 07:15 Hgb 11.9 gm/dl (10.1-14.3) 05/01/16 07:15 Hct 37.9 % (30.3-42.9) 05/01/16 07:15 MCV 83 fl (79-97) 05/01/16 07:15 MCH 26 pg (28-32) L 05/01/16 07:15 MCHC 32 % (30-34) 05/01/16 07:15 RDW 16.3 % (13.2-15.2) H 05/01/16 07:15 Plt Count 176 K/mm3 (140-440) 05/01/16 07:15 Lymph % (Auto) 23.1 % (13.4-35.0) 05/01/16 07:15 [place] % (Auto) 10.3 % (0.0-7.3) H 05/01/16 07:15 Eos % (Auto) 2.4 % (0.0-4.3) 05/01/16 07:15 Baso % (Auto) 1.2 % (0.0-1.8) 05/01/16 07:15 Lymph # 1.6 K/mm3 (1.2-5.4) 05/01/16 07:15 [place] # 0.7 K/mm3 (0.0-0.8) 05/01/16 07:15 Eos # 0.2 K/mm3 (0.0-0.4) 05/01/16 07:15 Baso # 0.1 K/mm3 (0.0-0.1) 05/01/16 07:15 Seg Neutrophils % 63.0 % (40.0-70.0) 05/01/16 07:15 Seg Neutrophils # 4.4 K/mm3 (1.8-7.7) 05/01/16 07:15 Sodium 140 mmol/L (137-145) 05/03/16 04:00 Potassium 3.9 mmol/L (3.6-5.0) 05/03/16 04:00 Chloride 98.4 mmol/L (98-107) 05/03/16 04:00 Carbon Dioxide 27 mmol/L (22-30) 05/03/16 04:00 Anion Gap 19 mmol/L 05/03/16 04:00 BUN 39 mg/dL (7-17) H 05/03/16 04:00 Creatinine 1.8 mg/dL (0.7-1.2) H 05/03/16 04:00 Estimated GFR 34 ml/min 05/03/16 04:00 BUN/Creatinine Ratio 21.66 % 05/03/16 04:00 Glucose 145 mg/dL (65-100) H 05/03/16 04:00 Calcium 9.1 mg/dL (8.4-10.2) 05/03/16 04:00 Magnesium 2.1 mg/dL (1.7-2.3) 05/03/16 04:00 Total Creatine Kinase 84 units/L (30-135) 05/01/16 07:15 CK-MB (CK-2) 2.7 ng/mL (0.0-4.0) 05/01/16 07:15 CK-MB (CK-2) Rel Index 3.2 (0-4) 05/01/16 07:15 Troponin T 0.027 ng/mL (0.00-0.029) 05/01/16 07:15 NT-Pro-B Natriuret Pep 7068 pg/mL (0-900) H 04/30/16 13:56 Triglycerides 100 mg/dL (2-149) 05/02/16 05:29 Cholesterol 165 mg/dL (50-199) 05/02/16 05:29 LDL Cholesterol Direct 97 mg/dL (50-130) 05/02/16 05:29 HDL Cholesterol 48 mg/dL (40-59) 05/02/16 05:29 Cholesterol/HDL Ratio 3.43 % 05/02/16 05:29 PTH Intact 285.7 pg/mL (15-65) H 05/03/16 04:00
[2016-05-04] MEDS: LASIX PO SCH (06:28)
[2016-05-04 06:31] LABS: Basophils % (Auto) 0.9 % (0.0-1.8); Eosinophils % (Auto) 2.2 % (0.0-4.3); Hematocrit 36.3 % (30.3-42.9); Hemoglobin 11.6 gm/dl (10.1-14.3); Mean Corpuscular HGB Conc 32 % (30-34); Mean Corpuscular Hemoglobin 27 pg (28-32); Mean Corpuscular Volume 84 fl (79-97); Platelet Count 167 K/mm3 (140-440); Red Blood Count 4.32 M/mm3 (3.65-5.03); Red Cell Distribution Width 16.1 % (13.2-15.2); White Blood Count 6.7 K/mm3 (4.5-11.0)
[2016-05-04 06:49] LABS: BUN/Creatinine Ratio 22.5; Chloride 98.1 mmol/L (98-107); Phosphorous 3.3 mg/dL (2.5-4.5); Potassium 3.9 mmol/L (3.6-5.0)
--- NOTE | 2016-05-04 07:12 | Progress Note ---
Assessment and Plan - Patient Problems (1) JOHNNIE (acute kidney injury) Current Visit: Yes Status: Acute Plan to address problem: Acute Kidney Injury superimposed on CKD (?stage) in the setting of CHF exacerbation. Patient is hemodynamically stable. Creatinine is improving. Baseline renal function is unknown. Renal US is negative. (2) CHF exacerbation Current Visit: Yes Status: Acute Qualifiers: Congestive heart failure type: C Plan to address problem: Improving. Continue Lasix. (3) CAD (coronary artery disease) Current Visit: Yes Status: Chronic Qualifiers: Coronary Disease-Associated Artery/Lesion type: C [place] vs. transplanted heart: N Associated angina: A (4) Essential (primary) hypertension Current Visit: Yes Status: Chronic Plan to address problem: BP is fair. Subjective Date of service: 05/04/16 Principal diagnosis: acute on chronic heart failure Interval history: Patient is feeling better. Objective - Vital Signs Vital signs: Vital Signs - 12hr 05/03/16 05/03/16 05/03/16 20:14 22:00 22:54 Temperature 98.8 F Pulse Rate 74 Pulse Rate [ 57 L Apical] Respiratory 18 Rate Blood Pressure Blood Pressure 143/78 [Left Radial Artery] O2 Sat by Pulse 94 99 Oximetry 05/03/16 05/03/16 05/04/16 23:03 23:55 04:27 Temperature 97.6 F 98.2 F Pulse Rate 63 Pulse Rate [ 45 L 60 Apical] Respiratory 20 18 Rate Blood Pressure 143/78 Blood Pressure 177/112 137/95 [Left Radial Artery] O2 Sat by Pulse 100 99 Oximetry - General Appearance General appearance: well-developed, well-nourished, obese, other (no distress) EENT: PERRL, mucous membranes moist, hearing intact, vision intact Neck: supple Respiratory: Present: Clear to Ascultation Cardiology: regular, S1S2, no murmurs Gastrointestinal: normoactive bowel sounds, no tenderness, no distended Integumentary: no rash, warm and dry Neurologic: no focal deficit, no asterixis, CN 3-12 intact Musculoskeletal: other (no edema) Psychiatric: mood/affect appropriate, cooperative - Lab 05/04/16 06:09 05/04/16 06:09 Most recent lab results Calcium 9.0 mg/dL (8.4-10.2) 05/04/16 06:09 Phosphorus 3.3 mg/dL (2.5-4.5) 05/04/16 06:09 Magnesium 2.1 mg/dL (1.7-2.3) 05/03/16 04:00
[2016-05-04] MEDS: ZESTRIL PO SCH (10:27)
[2016-05-04] MEDS: ROCALTROL PO SCH (10:28)
[2016-05-04] MEDS: BABY ASPIRIN PO SCH (10:28)
[2016-05-04] MEDS: COREG PO SCH ×2 (10:28→22:01)
--- NOTE | 2016-05-04 11:49 | Progress Note ---
Assessment and Plan Assessment and plan: * Acute on chronic systolic congestive heart failure * Hypertensive urgency-better controlled * Acute kidney injury on Chronic kidney disease-Unknown baseline. POA creatinine was 1.4 and admission now 1.9 * Hyperlipidemia * Acute dyspnea-resolved * Diabetes mellitus * History of aortic valve replacement in 2013 with aortic aneurysmal repair * CAD-s/p PCI of RCA with BMS (09/2012) * Cardiomyopathy- s/p ICD/pacemaker Plan * Continue Lasix by mouth * Accu-Cheks before meals and daily at bedtime * Continue beta jose m, may need to hold HORTENCIA inhibitor's concern was no renal function. Defer to cardiology. Continue aspirin * Continue daily weights and monitor ins and outs * Request records from primary care physician * Consult chief operator hydroformer for worsening renal function * DVT and GI prophylaxis History Interval history: No new issues overnight. Hospitalist Physical - Constitutional Vitals: Temp Pulse Resp BP Pulse Ox 98.4 F 53 L 20 151/89 98 05/04/16 09:16 05/04/16 09:16 05/04/16 09:16 05/04/16 09:16 05/04/16 10:00 General appearance: Present: no acute distress, obese - EENT Eyes: Present: PERRL, EOM intact ENT: hearing intact, clear oral mucosa, dentition normal - Neck Neck: Present: supple, normal ROM - Respiratory Respiratory effort: normal Respiratory: bilateral: CTA - Cardiovascular Rhythm: regular Heart Sounds: Present: S1 & S2. Absent: gallop, rub - Extremities Extremities: no ischemia, No edema, Full ROM - Abdominal General gastrointestinal: soft, non-tender, non-distended, normal bowel sounds - Integumentary Integumentary: Present: clear, warm, dry - Neurologic Neurologic: CNII-XII intact, moves all extremities Results - Labs CBC & Chem 7: 05/04/16 06:09 05/04/16 06:09 Labs: Laboratory Last Values WBC 6.7 K/mm3 (4.5-11.0) 05/04/16 06:09 RBC 4.32 M/mm3 (3.65-5.03) 05/04/16 06:09 Hgb 11.6 gm/dl (10.1-14.3) 05/04/16 06:09 Hct 36.3 % (30.3-42.9) 05/04/16 06:09 MCV 84 fl (79-97) 05/04/16 06:09 MCH 27 pg (28-32) L 05/04/16 06:09 MCHC 32 % (30-34) 05/04/16 06:09 RDW 16.1 % (13.2-15.2) H 05/04/16 06:09 Plt Count 167 K/mm3 (140-440) 05/04/16 06:09 Lymph % (Auto) 38.5 % (13.4-35.0) H 05/04/16 06:09 [place] % (Auto) 10.1 % (0.0-7.3) H 05/04/16 06:09 Eos % (Auto) 2.2 % (0.0-4.3) 05/04/16 06:09 Baso % (Auto) 0.9 % (0.0-1.8) 05/04/16 06:09 Lymph # 2.6 K/mm3 (1.2-5.4) 05/04/16 06:09 [place] # 0.7 K/mm3 (0.0-0.8) 05/04/16 06:09 Eos # 0.1 K/mm3 (0.0-0.4) 05/04/16 06:09 Baso # 0.1 K/mm3 (0.0-0.1) 05/04/16 06:09 Seg Neutrophils % 48.3 % (40.0-70.0) 05/04/16 06:09 Seg Neutrophils # 3.2 K/mm3 (1.8-7.7) 05/04/16 06:09 Sodium 138 mmol/L (137-145) 05/04/16 06:09 Potassium 3.9 mmol/L (3.6-5.0) 05/04/16 06:09 Chloride 98.1 mmol/L (98-107) 05/04/16 06:09 Carbon Dioxide 30 mmol/L (22-30) 05/04/16 06:09 Anion Gap 14 mmol/L 05/04/16 06:09 BUN 36 mg/dL (7-17) H 05/04/16 06:09 Creatinine 1.6 mg/dL (0.7-1.2) H 05/04/16 06:09 Estimated GFR 39 ml/min 05/04/16 06:09 BUN/Creatinine Ratio 22.50 % 05/04/16 06:09 Glucose 142 mg/dL (65-100) H 05/04/16 06:09 Calcium 9.0 mg/dL (8.4-10.2) 05/04/16 06:09 Phosphorus 3.3 mg/dL (2.5-4.5) 05/04/16 06:09 Magnesium 2.1 mg/dL (1.7-2.3) 05/03/16 04:00 Total Creatine Kinase 84 units/L (30-135) 05/01/16 07:15 CK-MB (CK-2) 2.7 ng/mL (0.0-4.0) 05/01/16 07:15 CK-MB (CK-2) Rel Index 3.2 (0-4) 05/01/16 07:15 Troponin T 0.027 ng/mL (0.00-0.029) 05/01/16 07:15 NT-Pro-B Natriuret Pep 7068 pg/mL (0-900) H 04/30/16 13:56 Triglycerides 100 mg/dL (2-149) 05/02/16 05:29 Cholesterol 165 mg/dL (50-199) 05/02/16 05:29 LDL Cholesterol Direct 97 mg/dL (50-130) 05/02/16 05:29 HDL Cholesterol 48 mg/dL (40-59) 05/02/16 05:29 Cholesterol/HDL Ratio 3.43 % 05/02/16 05:29 PTH Intact 285.7 pg/mL (15-65) H 05/03/16 04:00
--- NOTE | 2016-05-04 12:24 | Progress Note ---
Assessment and Plan Acute on chronic systolic heart failure clinically improving Echo 04/2016: mod LVH, EF 15-20% continue lasix, coreg, lisinopril Cardiomyopathy s/p ICD/pacemaker CAD s/p PCI of RCA with BMS (09/2012) Chronic kidney disease monitor renal indices nephrology following Hypertension Hyperlipidemia Diabetes Hx. of aortic valve replacement (06/2013) Hx. of aortic aneurysm repair (06/2013) Stable cardiac status. Continue current management and close monitoring of volume status and renal indices. The patient has been seen in conjunction with Dr. Churchill who agrees with the assessment and plan of care. Subjective Date of service: 05/04/16 Principal diagnosis: acute on chronic heart failure Interval history: The patient is resting in bed. No new complaints. Paced rhythm on the monitor. Objective Last Vital Signs Temp 98.1 F 05/04/16 12:18 Pulse 64 05/04/16 12:18 Resp 18 05/04/16 12:18 BP 142/92 05/04/16 12:18 Pulse Ox 100 05/04/16 12:18 - Physical Examination General: No Apparent Distress HEENT: Positive: Normocephaly, Mucus Membranes Moist Neck: Positive: neck supple, trachea midline Cardiac: Positive: Reg Rate and Rhythm, S1/S2 Lungs: Positive: clear to auscultation Neuro: Positive: Grossly Intact Abdomen: Positive: Soft, Active Bowel Sounds. Negative: Tender Skin: Positive: Clear. Negative: Rash Extremities: Absent: edema - Labs and Meds CBC 05/04/16 Range/Units 06:09 WBC 6.7 (4.5-11.0) K/mm3 RBC 4.32 (3.65-5.03) M/mm3 Hgb 11.6 (10.1-14.3) gm/dl Hct 36.3 (30.3-42.9) % Plt Count 167 (140-440) K/mm3 Lymph # 2.6 (1.2-5.4) K/mm3 [place] # 0.7 (0.0-0.8) K/mm3 Eos # 0.1 (0.0-0.4) K/mm3 Baso # 0.1 (0.0-0.1) K/mm3 Comprehensive Metabolic Panel 05/04/16 Range/Units 06:09 Sodium 138 (137-145) mmol/L Potassium 3.9 (3.6-5.0) mmol/L Chloride 98.1 (98-107) mmol/L Carbon Dioxide 30 (22-30) mmol/L BUN 36 H (7-17) mg/dL Creatinine 1.6 H (0.7-1.2) mg/dL Glucose 142 H (65-100) mg/dL Calcium 9.0 (8.4-10.2) mg/dL - Imaging and Cardiology EKG: image reviewed (ventricular paced rhythm) Echo: report reviewed (04/2016: moderate LVH, EF 15-20%, impaired relaxation, mild-moderate MR) - Telemetry EKG Rhythm: Paced Pacemaker: ventricular pacing w/capt
[2016-05-05] MEDS: LASIX PO SCH (06:12)
[2016-05-05 07:34] LABS: BUN/Creatinine Ratio 22.66; Calcium 9.2 mg/dL (8.4-10.2); Chloride 97.8 mmol/L (98-107); Potassium 3.9 mmol/L (3.6-5.0)
[2016-05-05 07:58] VITALS: BP 154/92
--- NOTE | 2016-05-05 09:11 | Progress Note ---
Assessment and Plan - Patient Problems (1) JOHNNIE (acute kidney injury) Current Visit: Yes Status: Acute Plan to address problem: Acute Kidney Injury superimposed on CKD (?stage) in the setting of CHF exacerbation. Patient is hemodynamically stable. Creatinine continue to improve. F/u with me in 2 weeks. (2) CHF exacerbation Current Visit: Yes Status: Acute Qualifiers: Congestive heart failure type: C Plan to address problem: Improving. Continue Lasix. (3) CAD (coronary artery disease) Current Visit: Yes Status: Chronic Qualifiers: Coronary Disease-Associated Artery/Lesion type: C [place] vs. transplanted heart: N Associated angina: A (4) Essential (primary) hypertension Current Visit: Yes Status: Chronic Plan to address problem: BP is well controlled. Subjective Date of service: 05/05/16 Principal diagnosis: acute on chronic heart failure Interval history: Patient is feeling better. Objective - Vital Signs Vital signs: Vital Signs - 12hr 05/04/16 05/04/16 05/04/16 21:44 22:00 22:01 Temperature 98.5 F Pulse Rate 66 Pulse Rate [ Apical] Pulse Rate [ 66 Left Radial] Respiratory 20 20 Rate Blood Pressure 140/76 Blood Pressure 140/76 [Left Radial Artery] O2 Sat by Pulse 100 100 Oximetry 05/05/16 05/05/16 05/05/16 01:29 05:50 07:57 Temperature 98.2 F 99.1 F 98.4 F Pulse Rate Pulse Rate [ 49 L Apical] Pulse Rate [ 68 61 Left Radial] Respiratory 20 18 18 Rate Blood Pressure Blood Pressure 118/90 133/103 154/92 [Left Radial Artery] O2 Sat by Pulse 96 100 100 Oximetry - General Appearance General appearance: well-developed, well-nourished, obese, other (no distress) EENT: PERRL, mucous membranes moist, hearing intact, vision intact Neck: supple Respiratory: Present: Clear to Ascultation Cardiology: regular, S1S2, no murmurs Gastrointestinal: normoactive bowel sounds, no tenderness, no distended Integumentary: no rash, warm and dry Neurologic: no focal deficit, no asterixis, alert and oriented x3, CN 3-12 intact Musculoskeletal: other (no edema) Psychiatric: mood/affect appropriate, cooperative - Lab 05/04/16 06:09 05/05/16 06:59 Most recent lab results Calcium 9.2 mg/dL (8.4-10.2) 05/05/16 06:59 Phosphorus 3.3 mg/dL (2.5-4.5) 05/04/16 06:09 Magnesium 2.1 mg/dL (1.7-2.3) 05/03/16 04:00
--- NOTE | 2016-05-05 09:43 | Discharge Summary ---
Providers - Providers Date of Admission: 04/30/16 19:06 Date of discharge: 05/05/16 Attending physician: ROBIN MAGANA 04/30/16 21:28 Consult to Physician [CONS] Routine Consulting Provider: AUDI PÉREZ Reason For Exam: chf Place consult to:: dr pérez Notified:: dr pérez 05/02/16 07:57 Consult to Physician [CONS] Routine Consulting Provider: JOSE KRISHNA Reason For Exam: JOHNNIE Place consult to:: carlyn Notified:: a service Phone number called:: [phone] Was contact made?: Yes If yes, spoke with:: mayra Time called:: 08:51 Hospitalization Condition: Stable Hospital course: The patient is a 70 year old female with a history of chronic systolic heart failure, cardiomyopathy s/p ICD implantation, aortic valve replacement, hypertension who presented with complaints of worsening shortness of breath and right leg edema over the past several days. She denied any chest pain, palpitations, nausea, vomiting or diaphoresis. She has chronic orthopnea. BNP 7068. BUN 21 with a creatinine of 1.4. She stated that she has been compliant with her medications including lasix. Patient was seen by cardiology. Patient was also seen by nephrology for renal insufficiency. Patient was treated with Lasix, Coreg and lisinopril for acute on chronic systolic heart failure exacerbation. Echocardiogram revealed moderate LVH and an EF of 15-20%. Patient returned back to her baseline volume status and was felt to have received maximal hospital benefit. Dedicated discharge time 35 minutes. Disposition: DISCHARGED TO HOME OR SELFCARE - Discharge Diagnoses (1) JOHNNIE (acute kidney injury) Status: Acute (2) CHF exacerbation Status: Acute Qualifiers: Congestive heart failure type: C (3) CAD (coronary artery disease) Status: Chronic Qualifiers: Coronary Disease-Associated Artery/Lesion type: C [place] vs. transplanted heart: N Associated angina: A (4) Essential (primary) hypertension Status: Chronic Core Measure Documentation - Palliative Care Palliative Care/ Comfort Measures: Not Applicable - Core Measures Any of the following diagnoses?: none Exam - Constitutional Vitals: Temp Pulse Resp BP Pulse Ox 98.4 F 49 L 18 154/92 100 05/05/16 07:57 05/05/16 07:57 05/05/16 07:57 05/05/16 07:57 05/05/16 07:57 General appearance: Present: no acute distress, well-nourished - EENT Eyes: Present: PERRL ENT: hearing intact, clear oral mucosa - Neck Neck: Present: supple, normal ROM - Respiratory Respiratory effort: normal Respiratory: bilateral: CTA - Cardiovascular Heart Sounds: Present: S1 & S2. Absent: rub, click - Extremities Extremities: pulses symmetrical, No edema Peripheral Pulses: within normal limits - Abdominal General gastrointestinal: Present: soft, non-tender, non-distended, normal bowel sounds Female genitourinary: Present: normal - Integumentary Integumentary: Present: clear, warm, dry - Musculoskeletal Musculoskeletal: gait normal, strength equal bilaterally - Psychiatric Psychiatric: appropriate mood/affect, intact judgment & insight - Neurologic Neurologic: CNII-XII intact, moves all extremities Plan Activity: no restrictions Weight Bearing Status: Full Weight Bearing Diet: low fat, low cholesterol, low salt Follow up with: DR DARBY [Other] - 3-5 Days KALLI MART MD [Staff Physician] - 7 Days Prescriptions: Aspirin [Aspirin BABY CHEW TAB] 81 mg PO QDAY #30 tab.chew Calcitriol [Rocaltrol] 0.5 mcg PO QDAY #30 capsule Carvedilol [Coreg] 6.25 mg PO BID #60 tablet Furosemide [Lasix TAB] 40 mg PO DAILY@0600 #30 tablet Lisinopril [Zestril TAB] 2.5 mg PO QDAY #30 tablet oxyCODONE /ACETAMINOPHEN [Percocet 5/325 mg] 1 tab PO Q6H PRN #10 tablet PRN Reason: Pain, Moderate (4-6)
--- NOTE | 2016-05-05 10:02 | Progress Note ---
Assessment and Plan Acute on chronic systolic heart failure clinically improving Echo 04/2016: mod LVH, EF 15-20% continue lasix, coreg, lisinopril Cardiomyopathy s/p ICD/pacemaker CAD s/p PCI of RCA with BMS (09/2012) continue ASA Chronic kidney disease monitor renal indices nephrology following Hypertension Hyperlipidemia Diabetes Hx. of aortic valve replacement (06/2013) Hx. of aortic aneurysm repair (06/2013) Stable cardiac status. Continue current management. Patient may be discharged from a cardiac standpoint. Follow up appointment with Dr. Jaxon Churchill in the [place] office on 05/19/16 at 3:30 pm. The patient has been seen in conjunction with Dr. Churchill who agrees with the assessment and plan of care. Subjective Date of service: 05/05/16 Principal diagnosis: acute on chronic heart failure Interval history: The patient is resting in bed. No new complaints. Paced rhythm on the monitor. Objective Last Vital Signs Temp 98.4 F 05/05/16 07:57 Pulse 49 L 05/05/16 07:57 Resp 18 05/05/16 07:57 BP 154/92 05/05/16 07:57 Pulse Ox 97 05/05/16 09:42 - Physical Examination General: No Apparent Distress HEENT: Positive: Normocephaly, Mucus Membranes Moist Neck: Positive: neck supple, trachea midline Cardiac: Positive: Reg Rate and Rhythm, S1/S2 Lungs: Positive: clear to auscultation Neuro: Positive: Grossly Intact Abdomen: Positive: Soft, Active Bowel Sounds. Negative: Tender Skin: Positive: Clear. Negative: Rash Extremities: Absent: edema - Labs and Meds Comprehensive Metabolic Panel 05/05/16 Range/Units 06:59 Sodium 138 (137-145) mmol/L Potassium 3.9 (3.6-5.0) mmol/L Chloride 97.8 L (98-107) mmol/L Carbon Dioxide 29 (22-30) mmol/L BUN 34 H (7-17) mg/dL Creatinine 1.5 H (0.7-1.2) mg/dL Glucose 140 H (65-100) mg/dL Calcium 9.2 (8.4-10.2) mg/dL - Imaging and Cardiology EKG: image reviewed (ventricular paced rhythm) Echo: report reviewed (04/2016: moderate LVH, EF 15-20%, impaired relaxation, mild-moderate MR) - Telemetry EKG Rhythm: Paced Pacemaker: ventricular pacing w/capt
[2016-05-05] MEDS: ROCALTROL PO SCH (10:41)
[2016-05-05] MEDS: ZESTRIL PO SCH (10:41)
[2016-05-05] MEDS: BABY ASPIRIN PO SCH (10:42)
[2016-05-05] MEDS: COREG PO SCH (10:42)
== END 2016-05-05 19:18 | disposition home or self-care (01) | DRG 682 ==
LOC: ED 13:25 → 4A 19:06
PROVIDERS: ADMIT Hospitalist; ATTEND Hospitalist
DX: N17.0 Acute kidney failure with tubular necrosis (principal); I50.23 Acute on chronic systolic (congestive) heart failure; I13.0 Hypertensive heart and chronic kidney disease with heart failure and stage 1 through stage 4 chronic kidney disease, or unspecified chronic kidney disease; I42.9 Cardiomyopathy, unspecified; I16.0 Hypertensive urgency; I25.10 Atherosclerotic heart disease of native coronary artery without angina pectoris; E11.22 Type 2 diabetes mellitus with diabetic chronic kidney disease; N18.9 Chronic kidney disease, unspecified; E66.9 Obesity, unspecified; R06.01 Orthopnea; E78.5 Hyperlipidemia, unspecified; Z90.710 Acquired absence of both cervix and uterus; Z87.891 Personal history of nicotine dependence; Z82.49 Family history of ischemic heart disease and other diseases of the circulatory system; Z98.61 Coronary angioplasty status; Z95.2 Presence of prosthetic heart valve; Z68.34 Body mass index [BMI] 34.0-34.9, adult; Z95.0 Presence of cardiac pacemaker
CPT/HCPCS: 36415; 71020; 76770; 80048; 80061; 82550; 82553; 83735; 83880; 83970; 84100; 84484; 85025; 90732; 93005; 93010; 93306; 94640; 94760; 96374; J1940

== ENCOUNTER 2016-05-12 01:44 | Inpatient (IN) | payer MEDICARE ==
[2016-05-12 03:31] LABS: Eosinophils % (Auto) 2.6 % (0.0-4.3); Hematocrit 41.4 % (30.3-42.9); Hemoglobin 13.2 gm/dl (10.1-14.3); Mean Corpuscular HGB Conc 32 % (30-34); Mean Corpuscular Hemoglobin 27 pg (28-32); Mean Corpuscular Volume 83 fl (79-97); Platelet Count 177 K/mm3 (140-440); Red Blood Count 4.98 M/mm3 (3.65-5.03); Red Cell Distribution Width 16.2 % (13.2-15.2); White Blood Count 6.9 K/mm3 (4.5-11.0)
[2016-05-12 03:46] LABS: BUN/Creatinine Ratio 16.11; Calcium 10.3 mg/dL (8.4-10.2); Chloride 97.8 mmol/L (98-107); Potassium 3.5 mmol/L (3.6-5.0)
--- NOTE | 2016-05-12 07:23 | XRay Report ---
CHEST 2 VIEWS INDICATION: Shortness of breath. COMPARISON: 04/30/2016 FINDINGS: PA and lateral chest radiographs demonstrate stable cardiomediastinal silhouette/cardiomegaly, aortic atherosclerotic calcifications, sternotomy wires, left AICD, mildly elevated left hemidiaphragm and osteopenia with few bony degenerative changes. Pulmonary arterial hypertension again possible with somewhat prominent/increased lung markings centrally. No large pleural effusions or CHF. CONCLUSION: No acute disease or significant interval change with possible pulmonary arterial hypertension, cardiomegaly and iatrogenic changes again noted, as described. Please correlate. Thank you for the opportunity to participate in this patient's care.
[2016-05-12] MEDS ORDERED: LASIX IV ONE (12:01)
[2016-05-12] MEDS ORDERED: APRESOLINE IV ONE ×2 (12:01→12:34)
[2016-05-12] MEDS ORDERED: BABY ASPIRIN PO ONE (12:09)
--- NOTE | 2016-05-12 12:09 | Emergency Department Report ---
HPI - General Chief Complaint: Dyspnea/Respdistress Time Seen by Provider: 05/12/16 11:27 - HPI HPI: The patient is a 70-year-old female with a history of hypertension and CHF, who presents for evaluation of dyspnea. The patient reports constant dyspnea for the past one day, severe, exacerbated with lying flat or physical activity, improved with sitting up and rest. The patient also reports associated bilateral lower leg swelling, worsened from baseline. The patient denies fever , syncope, hemoptysis, unilateral leg swelling, recent immobilization, history of DVT or PE, recent cancer. ED Past Medical Hx - Past Medical History Previous Medical History?: Yes Hx Hypertension: Yes Hx Congestive Heart Failure: Yes Hx Diabetes: No Hx Asthma: No Hx COPD: No - Surgical History Past Surgical History?: Yes Hx Internal Defibrillator: Yes Additional Surgical History: TONSILLECTOMY. HYSTERECTOMY - Social History Smoking Status: Never Smoker Substance Use Type: None - Medications Home Medications: Home Medications Medication Instructions Recorded Confirmed Last Taken Type Aspirin [Aspirin BABY CHEW TAB] 81 mg PO QDAY #30 tab.chew 05/05/16 05/12/16 Unknown Rx Carvedilol [Coreg] 6.25 mg PO BID #60 tablet 05/05/16 05/12/16 Unknown Rx Furosemide [Lasix TAB] 40 mg PO DAILY@0600 #30 tablet 05/05/16 05/12/16 Unknown Rx Lisinopril [Zestril TAB] 2.5 mg PO QDAY #30 tablet 05/05/16 05/12/16 Unknown Rx oxyCODONE /ACETAMINOPHEN [Percocet 1 tab PO Q6H PRN #10 tablet 05/05/16 Unknown Rx 5/325 mg] ED Review of Systems ROS: Stated complaint: MELODY Other details as noted in HPI Constitutional: denies: fever ENT: denies: throat or neck pain Respiratory: denies: cough reports shortness of breath Cardiovascular: denies: chest pain Endocrine: denies unexplained weight loss or gain Gastrointestinal: denies: abdominal pain, nausea Genitourinary: denies: dysuria Musculoskeletal: denies: leg swelling Skin: denies: rash Neurological: denies: headache Hematological/Lymphatic: denies: easy bleeding or easy bruising Psych: denies sadness or hopelessness Physical Exam - Physical Exam Vital Signs: Vital Signs 05/12/16 05/12/1617 01:47 02:42 06:41 Temperature 98 F 98 F 98.2 F Pulse Rate 89 89 86 Respiratory 20 22 20 Rate Blood Pressure 158/111 150/98 Blood Pressure 158/111 [Right] O2 Sat by Pulse 100 100 98 Oximetry 05/12/16 05/12/16 05/12/16 11:09 11:10 11:20 Temperature Pulse Rate 83 Respiratory 40 H Rate Blood Pressure 200/160 Blood Pressure [Right] O2 Sat by Pulse 100 98 98 Oximetry Physical Exam: General: well-nourished, well-developed, no acute distress Head: Normocephalic, atraumatic Eyes: normal sclera ENT: Mucous membranes are pink and moist Neck: trachea midline, neck supple, No neck stiffness, no cervical adenopathy Respiratory: Mildly diminished breath sounds and crackles present to bibasilar lung valdez, patient's tachypnea with mild costal retractions, 9 respiratory distress at this time Cardio: S1 and S2 present, no murmurs, rubs, gallops, capillary refill is brisk Abdomen: Normoactive bowel sounds, soft abdomen, no rigidity, no guarding or rebound tenderness Musc: No pitting edema Skin: No rash Neuro: no facial drooping, normal speech Psych: Normal affect ED Course Vital Signs 05/12/16 05/12/16 05/12/16 01:47 02:42 06:41 Temperature 98 F 98 F 98.2 F Pulse Rate 89 89 86 Respiratory 20 22 20 Rate Blood Pressure 158/111 150/98 Blood Pressure 158/111 [Right] O2 Sat by Pulse 100 100 98 Oximetry 05/12/16 05/12/16 05/12/16 11:09 11:10 11:20 Temperature Pulse Rate 83 Respiratory 40 H Rate Blood Pressure 200/160 Blood Pressure [Right] O2 Sat by Pulse 100 98 98 Oximetry ED Medical Decision Making - Lab Data Result diagrams: 05/12/16 03:05 05/12/16 03:05 - Medical Decision Making The patient was seen and examined by myself. The patient is placed on a bus monitor and continuous pulse ox. On initial evaluation, the patient was found to be in no distress. Evaluation orders were placed. The patient is given IV Lasix for treatment of CHF. The patient is given IV hydralazine for severely elevated blood pressure. Chest x-ray demonstrates cardiomegaly and mild pulmonary vascular congestion. Lab results revealed elevated BNP of 5000 and elevated creatinine level of 1.8. The on-call hospitalist service was contacted. They agreed to admit the patient for further treatment and close monitoring. The ED admit order was placed. The patient was admitted in guarded condition. Critical care attestation.: If time is entered above; I have spent that time in minutes in the direct care of this critically ill patient, excluding procedure time. ED Disposition Clinical Impression: Hypertensive emergency, CHF exacerbation, JOHNNIE (acute kidney injury) Disposition: OP ADMITTED IP TO THIS HOSP Is pt being admited?: Yes Does the pt Need Aspirin: Yes Condition: Serious Time of Disposition: 12:09
--- NOTE | 2016-05-12 12:18 | Admit Criteria Form ---
Admission Criteria Documentation: HYPERTENSION Clinical Indications for Admission to Inpatient Care ( Place "X" for any and all applicable criteria): Admission is indicated for ANY ONE of the following(1)(2)(3)(4): [X]I. Hypertensive emergency, with evidence of acute and progressing target organ disease as indicated by ANY ONE of the following: [ ]a) Hypertensive encephalopathy (eg, confusion, altered mental status) [ ]b) Cerebral infarction [ ]c) Intracranial hemorrhage [ ]d) Myocardial ischemia or infarction [ ]e) Pulmonary edema [ ]f) Aortic dissection [ ]g) Seizure [X ]h) Acute renal insufficiency [ ]i) Papilledema [ ]j) Microangiopathic hemolytic anemia [ ]II. Adrenergic crisis (eg, severe hypertension due to pheochromocytoma crisis, cocaine or amphetamine intoxication, or clonidine withdrawal) [ ]III. Severe hypertension (SBP greater than 180 mmHg or DBP greater than 110 mmHg or greater than the 95th percentile for age, gender, and height in pediatric patients) that cannot be controlled (eg, to SBP less than 160 mmHg and DBP less than 100 mmHg in adults) by treatment with oral medication in emergency department or observation care Extended stay beyond goal length of stay may be needed for(11)(12)(13): [ ]a) Persistent hypertensive encephalopathy [ ]b) Continuation of pulmonary edema [ ]c) Recurring or persistent severe hypertension [ ]d) Target organ damage (eg, angina, stroke, aortic dissection) [ ]e) Associated renal insufficiency The original [employer] content created by [employer] has been revised. The portions of the content which have been revised are identified through the use of italic text or in bold, and [facility] has neither reviewed nor approved the modified material. All other unmodified content is copyright [employer]. Please see references footnoted in the original [facility] edition 2016 Admission Criteria Met: Yes
[2016-05-12] MEDS ORDERED: ZOFRAN IV PRN (13:46)
[2016-05-12] MEDS ORDERED: TYLENOL PO PRN (13:46)
[2016-05-12] MEDS ORDERED: SENOKOT PO PRN (13:46)
[2016-05-12] MEDS ORDERED: DULCOLAX PR PRN (13:46)
[2016-05-12] MEDS ORDERED: MORPHINE IV PRN (13:46)
[2016-05-12] MEDS ORDERED: MILK OF MAGNESIA PO PRN (13:46)
[2016-05-12] MEDS ORDERED: K-DUR PO SCH (13:56)
--- NOTE | 2016-05-12 14:03 | History and Physical Report ---
History of Present Illness Date of examination: 05/12/16 Chief complaint: Worsening shortness of breath for the past 3 days History of present illness: 70-year-old -[place] female with history of CHF hypertension and cardiomyopathy and chronic kidney disease who was discharged from this hospital about a week ago, was brought to the emergency room for worsening shortness of breath for 3 days. She has been sleeping on 3-4 pillows since her discharge and she gives history suggestive of paroxysmal nocturnal dyspnea. She has good appetite and she denies any chest pain palpitations or syncope. Denies any fever or cough Past History Past Medical History: heart failure (cardiomyopathy with ejection fraction of 15 -20%), hypertension, renal failure Past Surgical History: valve replacement (valve replacement and repair of aortic aneurysm), hysterectomy, tonsillectomy, Other (AICD placement) Social history: no significant social history. denies: smoking Family history: diabetes, hypertension Medications and Allergies Allergies Allergy/AdvReac Type Severity Reaction Status Date / Time No Known Allergies Allergy Unverified 04/30/16 13:46 Home Medications Medication Instructions Recorded Confirmed Last Taken Type Aspirin [Aspirin BABY CHEW TAB] 81 mg PO QDAY #30 tab.chew 05/05/16 05/12/16 Unknown Rx Carvedilol [Coreg] 6.25 mg PO BID #60 tablet 05/05/16 05/12/16 Unknown Rx Furosemide [Lasix TAB] 40 mg PO DAILY@0600 #30 tablet 05/05/16 05/12/16 Unknown Rx Lisinopril [Zestril TAB] 2.5 mg PO QDAY #30 tablet 05/05/16 05/12/16 Unknown Rx oxyCODONE /ACETAMINOPHEN [Percocet 1 tab PO Q6H PRN #10 tablet 05/05/16 Unknown Rx 5/325 mg] Active Meds: Active Medications Acetaminophen (Tylenol) 650 mg PO Q4H PRN PRN Reason: Pain MILD(1-3)/Fever >100.5/BHATTI Aspirin (Baby Aspirin) 81 mg PO QDAY [facility] Bisacodyl (Dulcolax) 10 mg RI QDAY PRN PRN Reason: Constipation unrelieved by MOM Carvedilol (Coreg) 6.25 mg PO BID [facility] Furosemide (Lasix) 40 mg IV ONCE ONE Last Admin: 05/12/16 12:57 Dose: 40 mg Furosemide (Lasix) 40 mg IV Q12H [facility] Heparin Sodium (Porcine) (Heparin) 5,000 unit SUB-Q Q8HR [facility] Hydralazine HCl (Apresoline) 10 mg IV ONCE ONE Last Admin: 05/12/16 12:57 Dose: 10 mg Lisinopril (Zestril) 2.5 mg PO QDAY [facility] Magnesium Hydroxide (Milk Of Magnesia) 30 ml PO Q4H PRN PRN Reason: Constipation Morphine Sulfate (Morphine) 1 mg IV Q4H PRN PRN Reason: Pain, Moderate (4-6) Ondansetron HCl (Zofran) 4 mg IV Q8H PRN PRN Reason: N/V unrelieved by Reglan Potassium Chloride (K-Dur) 20 meq PO ONCE ONE Stop: 05/12/16 13:59 Senna (Senokot) 8.6 mg PO DAILY PRN PRN Reason: Constipation Review of Systems Constitutional: fatigue, weakness, no weight loss, no weight gain, no fever, no chills, no poor appetite Ears, nose, mouth and throat: no ear pain, no ear discharge, no sore throat, no headache Cardiovascular: orthopnea, shortness of breath, dyspnea on exertion, paroxysmal nocturnal dyspnea, high blood pressure, no chest pain, no palpitations, no syncope, no lightheadedness Respiratory: shortness of breath, dyspnea on exertion, no cough, no hemoptysis, no wheezing, no sleep apnea Gastrointestinal: no abdominal pain, no nausea, no vomiting, no diarrhea, no constipation, no melena Genitourinary Female: no dysuria, no urinary frequency, no urgency, no urge incontinence Menstruation: postmenopausal Rectal: no pain Musculoskeletal: no low back pain, no arthritis Integumentary: no rash Neurological: no seizures, no syncope, no vertigo, no headaches Psychiatric: no anxiety, no depression Endocrine: no polydipsia, no polyuria, no nocturia Exam - Constitutional Vitals: Temp Pulse Resp BP Pulse Ox 98.2 F 80 25 H 193/103 98 05/12/16 06:41 05/12/16 12:30 05/12/16 12:30 05/12/16 12:30 05/12/16 12:30 General appearance: Present: mild distress (mildly short of breath), well- nourished - EENT Eyes: Present: PERRL, EOM intact ENT: hearing intact, clear oral mucosa, no thrush - Neck Neck: Present: supple, normal ROM. Absent: masses or JVD, carotid bruits - Respiratory Respiratory effort: normal Respiratory: bilateral: CTA, negative: rales, rhonchi, wheezing - Cardiovascular Rhythm: regular Heart Sounds: Present: S1 & S2 - Extremities Extremity abnormal: edema (trace leg edema) - Abdominal General gastrointestinal: Present: soft, non-tender. Absent: hepatomegaly, splenomegaly - Rectal Rectal Exam: deferred - Integumentary Integumentary: Present: clear, warm, dry - Musculoskeletal Musculoskeletal: strength equal bilaterally - Psychiatric Psychiatric: appropriate mood/affect - Neurologic Neurologic: no focal deficits Results - Labs CBC & Chem 7: 05/12/16 03:05 05/12/16 03:05 Labs: Abnormal lab results 05/12/16 05/12/16 05/12/16 Range/Units 03:05 03:05 03:45 MCH 27 L (28-32) pg RDW 16.2 H (13.2-15.2) % [place] % (Auto) 11.0 H (0.0-7.3) % Potassium 3.5 L (3.6-5.0) mmol/L Chloride 97.8 L (98-107) mmol/L BUN 29 H (7-17) mg/dL Creatinine 1.8 H (0.7-1.2) mg/dL Glucose 157 H (65-100) mg/dL Calcium 10.3 H (8.4-10.2) mg/dL NT-Pro-B Natriuret Pep 5184 H (0-900) pg/mL Assessment and Plan - Patient Problems (1) Acute on chronic systolic CHF (congestive heart failure) Current Visit: Yes Status: Acute Plan to address problem: Admitted to telemetry floor EKG shows paced rhythm Troponin in the normal range Chest x-ray shows cardiomegaly no no effusion/congestion Fluid restriction to 40 ounces a day Daily weights Cardiology consult Lasix IV every 12 hours Oxygen supplements Continue HORTENCIA inhibitor and beta blockers and aspirin (2) CKD (chronic kidney disease) stage 3, GFR 30-59 ml/min Current Visit: Yes Status: Chronic Plan to address problem: She appears to be at her baseline based on review of her last lab results Monitor electrolytes and renal function Avoid nephrotoxins (3) Cardiomyopathy Current Visit: Yes Status: Chronic Plan to address problem: Ejection fraction 15-20% Discussed with patient the importance of fluid restriction and daily weights and low salt diet (4) Hypertensive emergency Current Visit: Yes Status: Acute Plan to address problem: Her blood pressure was extremely high at the time of her presentation to the ED especially the diastolic component This time she appears to be stable and her blood pressure is around 140/90 Continue beta blockers and hortencia inhibitors
[2016-05-12] MEDS: HEPARIN SUB-Q SCH ×3 (14:14→23:32)
[2016-05-12] MEDS: K-DUR PO ONE ×2 (14:14→16:51)
[2016-05-12] MEDS: LASIX IV SCH (14:19)
--- NOTE | 2016-05-12 15:52 | Consultation ---
History of Present Illness Consult date: 05/12/16 Requesting physician: ADALBERTO ADKINS History of present illness: The patient is a 70 year old female with a history of chronic systolic heart failure, cardiomyopathy s/p ICD implantation, aortic valve replacement, hypertension, chronic kidney disease who presented with complaints of worsening shortness of breath and dyspnea on exertion over the past 3 days. She denies any chest pain, palpitations, nausea, vomiting or diaphoresis. She has chronic orthopnea. BNP 5184. BUN 29 with a creatinine of 1.8. She was just discharged from [facility] on 05/05/16 following an admission for acute on chronic heart failure. She states that she has been compliant with her medications including lasix. Her primary carbon dioxide operator is Dr. Austin with [facility] in [place]. Past History Past Medical History: CAD, diabetes, heart failure (chronic systolic), hypertension, hyperlipidemia, renal failure (chronic kidney disease), other ( cardiomyopathy with ejection fraction of 15-20%) Past Surgical History: valve replacement (valve replacement and repair of aortic aneurysm), hysterectomy, tonsillectomy, PTCA, Other (AICD placement) Social history: lives with family, full code. denies: smoking, alcohol abuse, prescription drug abuse, IV drug use Family history: no significant family history Medications and Allergies Allergies Allergy/AdvReac Type Severity Reaction Status Date / Time No Known Allergies Allergy Unverified 04/30/16 13:46 Home Medications Medication Instructions Recorded Confirmed Last Taken Type Aspirin [Aspirin BABY CHEW TAB] 81 mg PO QDAY #30 tab.chew 05/05/16 05/12/16 Unknown Rx Carvedilol [Coreg] 6.25 mg PO BID #60 tablet 05/05/16 05/12/16 Unknown Rx Furosemide [Lasix TAB] 40 mg PO DAILY@0600 #30 tablet 05/05/16 05/12/16 Unknown Rx Lisinopril [Zestril TAB] 2.5 mg PO QDAY #30 tablet 05/05/16 05/12/16 Unknown Rx oxyCODONE /ACETAMINOPHEN [Percocet 1 tab PO Q6H PRN #10 tablet 05/05/16 Unknown Rx 5/325 mg] Active Meds: Active Medications Acetaminophen (Tylenol) 650 mg PO Q4H PRN PRN Reason: Pain MILD(1-3)/Fever >100.5/BHATTI Aspirin (Baby Aspirin) 81 mg PO QDAY [facility] Bisacodyl (Dulcolax) 10 mg [place] QDAY PRN PRN Reason: Constipation unrelieved by MOM Carvedilol (Coreg) 6.25 mg PO BID [facility] Furosemide (Lasix) 40 mg IV ONCE ONE Last Admin: 05/12/16 12:57 Dose: 40 mg Furosemide (Lasix) 40 mg IV Q12H [facility] Last Admin: 05/12/16 14:19 Dose: Not Given Heparin Sodium (Porcine) (Heparin) 5,000 unit SUB-Q Q8HR [facility] Last Admin: 05/12/16 14:14 Dose: 5,000 unit Hydralazine HCl (Apresoline) 10 mg IV ONCE ONE Last Admin: 05/12/16 12:57 Dose: 10 mg Lisinopril (Zestril) 2.5 mg PO QDAY [facility] Magnesium Hydroxide (Milk Of Magnesia) 30 ml PO Q4H PRN PRN Reason: Constipation Morphine Sulfate (Morphine) 1 mg IV Q4H PRN PRN Reason: Pain, Moderate (4-6) Ondansetron HCl (Zofran) 4 mg IV Q8H PRN PRN Reason: N/V unrelieved by Simone Cervantes (Senokot) 8.6 mg PO DAILY PRN PRN Reason: Constipation Review of Systems Constitutional: no fever, no chills Ears, nose, mouth and throat: no nasal congestion, no nasal discharge, no sinus pressure Cardiovascular: orthopnea, shortness of breath, dyspnea on exertion, leg edema, no chest pain, no palpitations Respiratory: shortness of breath, dyspnea on exertion, no cough, no congestion, no wheezing Gastrointestinal: no abdominal pain, no nausea, no vomiting, no diarrhea, no constipation Genitourinary Female: no dysuria, no urgency Musculoskeletal: no neck stiffness, no neck pain, no myalgias Integumentary: no rash, no pruritis Neurological: no parathesias, no numbness, no tingling, no headaches Endocrine: no cold intolerance, no heat intolerance Hematologic/Lymphatic: no easy bruising, no easy bleeding Allergic/Immunologic: no urticaria, no wheezing Physical Examination Vital Signs Temp Pulse Resp BP Pulse Ox 98 F 89 20 158/111 100 05/12/16 01:47 05/12/16 01:47 05/12/16 01:47 05/12/16 01:47 05/12/16 01:47 General appearance: no acute distress HEENT: Positive: PERRL, Normocephaly, Mucus Membranes Moist Neck: Positive: neck supple, trachea midline Cardiac: Positive: Reg Rate and Rhythm, S1/S2 Lungs: Positive: clear to auscultation Neuro: Positive: Grossly Intact Abdomen: Positive: Soft, Active Bowel Sounds. Negative: Tender Skin: Positive: Clear. Negative: Rash Extremities: Present: normal, edema (trace-right lower leg) Results 05/12/16 03:05 05/12/16 03:05 - Imaging and Cardiology Echo: report reviewed (04/2016: moderate LVH, EF 15-20%) EKG: image reviewed EKG interpretations - Telemetry EKG Rhythm: Paced Pacemaker: ventricular pacing w/capt Assessment and Plan Acute on chronic systolic heart failure Echo 04/2016: moderate LVH, EF 15-20%, normally functioning bioprosthetic AV, mild-moderate MR continue lasix, coreg, lisinopril Cardiomyopathy s/p ICD/pacemaker CAD s/p PCI of RCA with BMS (09/2012) continue ASA Chronic kidney disease monitor renal indices Hypertension Hyperlipidemia Diabetes Hx. of aortic valve replacement (06/2013) Hx. of aortic aneurysm repair (06/2013) The patient has been seen in conjunction with Dr. Miller who agrees with the assessment and plan of care. Thank you Dr. Adkins for allowing us to participate in the care of this patient.
[2016-05-12] MEDS: APRESOLINE IV PRN ×2 (16:52→23:31)
[2016-05-12] MEDS: APRESOLINE PO SCH (23:33)
[2016-05-12] MEDS: COREG PO SCH (23:33)
[2016-05-13] MEDS: LASIX IV SCH ×3 (03:09→18:09)
[2016-05-13] MEDS: HEPARIN SUB-Q SCH ×3 (05:39→22:30)
[2016-05-13] MEDS: APRESOLINE PO SCH ×3 (05:40→22:29)
[2016-05-13 05:51] LABS: BUN/Creatinine Ratio 17.64; Calcium 9.6 mg/dL (8.4-10.2); Chloride 97.3 mmol/L (98-107); Potassium 3.9 mmol/L (3.6-5.0)
[2016-05-13] MEDS: COREG PO SCH ×2 (10:19→22:30)
[2016-05-13] MEDS: BABY ASPIRIN PO SCH (10:19)
[2016-05-13] MEDS: ZESTRIL PO SCH (10:19)
--- NOTE | 2016-05-13 10:59 | Progress Note ---
Assessment and Plan Acute on chronic systolic heart failure Echo 04/2016: moderate LVH, EF 15-20%, normally functioning bioprosthetic AV, mild-moderate MR continue lasix, coreg, lisinopril Cardiomyopathy s/p ICD/pacemaker CAD s/p PCI of RCA with BMS (09/2012) continue ASA Chronic kidney disease monitor renal indices Hypertension Hyperlipidemia Diabetes Hx. of aortic valve replacement (06/2013) Hx. of aortic aneurysm repair (06/2013) Subjective Date of service: 05/13/16 Interval history: feel better this am no complaints Objective Vital Signs Temp Pulse Pulse Resp BP BP Pulse Ox 05/13/16 10:19 74 157/96 05/13/16 09:45 96 05/13/16 08:00 74 05/13/16 05:00 99.1 F 77 20 132/75 100 05/13/16 00:00 99.3 F 83 19 124/66 96 05/12/16 21:27 97 H 20 05/12/16 21:25 97 H 05/12/16 20:00 98.4 F 90 20 182/87 96 05/12/16 19:25 100 05/12/16 16:00 98.0 F 79 20 200/97 98 05/12/16 15:10 84 38 H 146/88 97 05/12/16 15:00 97 H 36 H 146/88 98 05/12/16 14:50 87 27 H 152/101 96 05/12/16 14:40 89 35 H 152/101 98 05/12/16 14:30 87 38 H 152/101 100 05/12/16 14:20 84 42 H 152/101 96 05/12/16 14:10 89 37 H 152/101 96 05/12/16 14:00 90 40 H 152/101 99 05/12/16 13:50 91 H 39 H 146/75 98 05/12/16 13:40 82 12 146/75 99 05/12/16 13:30 83 21 146/75 99 05/12/16 13:20 89 16 146/75 05/12/16 13:10 146/75 98 05/12/16 13:00 90 12 193/103 97 05/12/16 12:54 103 H 193/103 98 - Physical Examination HEENT: Positive: PERRL, Normocephaly, Mucus Membranes Moist Neck: Positive: neck supple, trachea midline Neuro: Positive: Grossly Intact Abdomen: Positive: Soft, Active Bowel Sounds. Negative: Tender Skin: Positive: Clear. Negative: Rash Extremities: Present: normal, edema (trace-right lower leg) - Labs and Meds Comprehensive Metabolic Panel 05/13/16 Range/Units 04:17 Sodium 140 (137-145) mmol/L Potassium 3.9 (3.6-5.0) mmol/L Chloride 97.3 L (98-107) mmol/L Carbon Dioxide 27 (22-30) mmol/L BUN 30 H (7-17) mg/dL Creatinine 1.7 H (0.7-1.2) mg/dL Glucose 136 H (65-100) mg/dL Calcium 9.6 (8.4-10.2) mg/dL - Imaging and Cardiology EKG: image reviewed Echo: report reviewed (04/2016: moderate LVH, EF 15-20%) Pacemaker: ventricular pacing w/capt
[2016-05-13] MEDS ORDERED: FLUARIX QUAD 2016-2017(36 MOS+) IM ONE (12:00)
--- NOTE | 2016-05-13 15:53 | Progress Note ---
Assessment and Plan Assessment and plan: 70 yo AA female with cardiomyopathy with Ef 20% admitted for worsening SOB and orthopnea 1. Acute on chronic systolic heart failure Recent ECHO with EF 15-20% On iv Lasix, spironolactone, coreg and lisinopril I/Os with negative balance Improving clinically Cradiology following 2. CM with EF 15-20% s/p AICD 3. CAD S/p PCI RCA Stable On BB, ACEI, antiplatelet therapy and statin 4. Ao valve replacement 5. HTN urgency Resolved Now on above po mentioned medicatons and BP controlled 6. CKD Cr 1.7-1.8 (likely her baseline) despite iv lasix Monitor renal function and electrolytes closely 7. Hyperlipidemia Continue statin History Interval history: SOB slightly improved, no other complaints Hospitalist Physical - Constitutional Vitals: Temp Pulse Resp BP Pulse Ox 98.2 F 73 20 144/82 97 05/13/16 15:39 05/13/16 15:39 05/13/16 15:39 05/13/16 15:39 05/13/16 15:39 General appearance: Present: no acute distress, obese - EENT Eyes: Present: PERRL, EOM intact. Absent: scleral icterus, conjunctival injection - Neck Neck: Present: supple, normal ROM. Absent: masses or JVD - Respiratory Respiratory effort: normal Respiratory: bilateral: diminished, negative: rhonchi, wheezing - Cardiovascular Rhythm: regular Heart Sounds: Present: S1 & S2, systolic murmur - Extremities Extremities: no ischemia - Abdominal General gastrointestinal: soft, non-tender, non-distended, normal bowel sounds - Integumentary Integumentary: Present: warm, dry. Absent: jaundice, rash - Psychiatric Psychiatric: cooperative - Neurologic Neurologic: CNII-XII intact, no focal deficits Results - Labs CBC & Chem 7: 05/12/16 03:05 05/15/16 04:33 Labs: Laboratory Last Values WBC 6.9 K/mm3 (4.5-11.0) 05/12/16 03:05 RBC 4.98 M/mm3 (3.65-5.03) 05/12/16 03:05 Hgb 13.2 gm/dl (10.1-14.3) 05/12/16 03:05 Hct 41.4 % (30.3-42.9) 05/12/16 03:05 MCV 83 fl (79-97) 05/12/16 03:05 MCH 27 pg (28-32) L 05/12/16 03:05 MCHC 32 % (30-34) 05/12/16 03:05 RDW 16.2 % (13.2-15.2) H 05/12/16 03:05 Plt Count 177 K/mm3 (140-440) 05/12/16 03:05 Lymph % (Auto) 28.0 % (13.4-35.0) 05/12/16 03:05 [place] % (Auto) 11.0 % (0.0-7.3) H 05/12/16 03:05 Eos % (Auto) 2.6 % (0.0-4.3) 05/12/16 03:05 Baso % (Auto) 1.0 % (0.0-1.8) 05/12/16 03:05 Lymph # 1.9 K/mm3 (1.2-5.4) 05/12/16 03:05 [place] # 0.8 K/mm3 (0.0-0.8) 05/12/16 03:05 Eos # 0.2 K/mm3 (0.0-0.4) 05/12/16 03:05 Baso # 0.1 K/mm3 (0.0-0.1) 05/12/16 03:05 Seg Neutrophils % 57.4 % (40.0-70.0) 05/12/16 03:05 Seg Neutrophils # 3.9 K/mm3 (1.8-7.7) 05/12/16 03:05 Sodium 140 mmol/L (137-145) 05/13/16 04:17 Potassium 3.9 mmol/L (3.6-5.0) 05/13/16 04:17 Chloride 97.3 mmol/L (98-107) L 05/13/16 04:17 Carbon Dioxide 27 mmol/L (22-30) 05/13/16 04:17 Anion Gap 20 mmol/L 05/13/16 04:17 BUN 30 mg/dL (7-17) H 05/13/16 04:17 Creatinine 1.7 mg/dL (0.7-1.2) H 05/13/16 04:17 Estimated GFR 36 ml/min 05/13/16 04:17 BUN/Creatinine Ratio 17.64 % 05/13/16 04:17 Glucose 136 mg/dL (65-100) H 05/13/16 04:17 POC Glucose 143 (70-105) H 05/13/16 01:39 Calcium 9.6 mg/dL (8.4-10.2) 05/13/16 04:17 Troponin T 0.017 ng/mL (0.00-0.029) 05/12/16 03:05 NT-Pro-B Natriuret Pep 5184 pg/mL (0-900) H 05/12/16 03:45
[2016-05-14 06:54] LABS: BUN/Creatinine Ratio 17.22; Calcium 9.5 mg/dL (8.4-10.2); Chloride 100.2 mmol/L (98-107); Potassium 3.6 mmol/L (3.6-5.0)
[2016-05-14] MEDS: LASIX IV SCH ×2 (07:04→17:17)
[2016-05-14] MEDS: APRESOLINE PO SCH ×3 (07:04→22:25)
[2016-05-14] MEDS: HEPARIN SUB-Q SCH ×3 (07:05→22:26)
[2016-05-14] MEDS: ZESTRIL PO SCH (09:41)
[2016-05-14] MEDS: BABY ASPIRIN PO SCH (09:42)
[2016-05-14] MEDS: COREG PO SCH ×2 (09:42→22:25)
--- NOTE | 2016-05-14 10:25 | Progress Note ---
Assessment and Plan This is a 70 AAF: Acute on chronic systolic heart failure Echo 04/2016: moderate LVH, EF 15-20%, normally functioning bioprosthetic AV, mild-moderate MR continue lasix, coreg, lisinopril add aldactone Cardiomyopathy s/p ICD/pacemaker CAD s/p PCI of RCA with BMS (09/2012) continue ASA Chronic kidney disease monitor renal indices Hypertension Hyperlipidemia Diabetes Hx. of aortic valve replacement (06/2013) Hx. of aortic aneurysm repair (06/2013) Clinically improving add aldactone increase ambulation wean o2 poss am dc Subjective Date of service: 05/14/16 Interval history: feeling better less sob Objective Vital Signs Temp Pulse Pulse Pulse Resp BP BP 05/14/16 09:42 74 05/14/16 09:41 74 05/14/16 08:00 98.1 F 74 20 159/88 05/14/16 07:04 76 153/65 05/14/16 06:38 99.0 F 76 18 153/65 05/14/16 01:36 98.3 F 80 18 146/68 05/13/16 22:30 75 144/103 05/13/16 22:29 75 144/103 05/13/16 21:35 05/13/16 21:00 98.4 F 37 L 18 144/103 05/13/16 16:00 71 05/13/16 15:39 98.2 F 73 20 144/82 05/13/16 13:23 71 123/67 05/13/16 13:20 98.1 F 71 18 123/67 05/13/16 10:19 74 157/96 05/13/16 09:45 Pulse Ox 05/14/16 09:42 05/14/16 09:41 05/14/16 08:00 100 05/14/16 07:04 05/14/16 06:38 98 05/14/16 01:36 100 05/13/16 22:30 05/13/16 22:29 05/13/16 21:35 100 05/13/16 21:00 98 05/13/16 16:00 05/13/16 15:39 97 05/13/16 13:23 05/13/16 13:20 05/13/16 10:19 05/13/16 09:45 96 - Physical Examination HEENT: Positive: PERRL, Normocephaly, Mucus Membranes Moist Neck: Positive: neck supple, trachea midline Neuro: Positive: Grossly Intact Abdomen: Positive: Soft, Active Bowel Sounds. Negative: Tender Skin: Positive: Clear. Negative: Rash Extremities: Present: normal, edema (trace-right lower leg) - Labs and Meds Comprehensive Metabolic Panel 05/14/16 Range/Units 05:25 Sodium 145 (137-145) mmol/L Potassium 3.6 (3.6-5.0) mmol/L Chloride 100.2 (98-107) mmol/L Carbon Dioxide 29 (22-30) mmol/L BUN 31 H (7-17) mg/dL Creatinine 1.8 H (0.7-1.2) mg/dL Glucose 125 H (65-100) mg/dL Calcium 9.5 (8.4-10.2) mg/dL - Imaging and Cardiology EKG: image reviewed Echo: report reviewed (04/2016: moderate LVH, EF 15-20%) Pacemaker: ventricular pacing w/capt
[2016-05-14] MEDS: ALDACTONE PO SCH (13:07)
--- NOTE | 2016-05-14 22:31 | Progress Note ---
Assessment and Plan Assessment and plan: 1. Acute on chronic systolic heart failure Recent ECHO with EF 15-20% On iv lasix, spironolactone, coreg and lisinopril I/Os with negative balance Cardiology following - will discuss if Lasix can be change to po 2. CM with EF 15-20% s/p AICD 3. CAD S/p PCI RCA Stable On BB, ACEI, antiplatelet therapy and statin 4. Ao valve replacement 5. HTN urgency Resolved Now on above po mentioned medicatons and BP controlled 6. CKD Cr 1.7-1.8 (likely her baseline) despite iv lasix Monitor renal function and electrolytes closely 7. Hyperlipidemia Continue statin 8. DVT prophylaxis Heparin subcutaneous History Interval history: feeling better, SOB slightly improved, no complaints Hospitalist Physical - Constitutional Vitals: Temp Pulse Resp BP Pulse Ox 98.2 F 64 18 127/77 100 05/14/16 19:00 05/14/16 22:25 05/14/16 21:10 05/14/16 22:25 05/14/16 20:58 General appearance: Present: no acute distress - EENT Eyes: Present: PERRL, EOM intact - Neck Neck: Present: supple, normal ROM. Absent: masses or JVD - Respiratory Respiratory effort: normal Respiratory: bilateral: diminished, negative: rhonchi, wheezing - Cardiovascular Rhythm: regular Heart Sounds: Present: S1 & S2, systolic murmur - Extremities Extremities: no ischemia - Abdominal General gastrointestinal: soft, non-tender, non-distended, normal bowel sounds - Integumentary Integumentary: Present: warm, dry. Absent: jaundice, rash - Psychiatric Psychiatric: cooperative - Neurologic Neurologic: CNII-XII intact, no focal deficits Results - Labs CBC & Chem 7: 05/12/16 03:05 05/15/16 04:33 Labs: Laboratory Last Values WBC 6.9 K/mm3 (4.5-11.0) 05/12/16 03:05 RBC 4.98 M/mm3 (3.65-5.03) 05/12/16 03:05 Hgb 13.2 gm/dl (10.1-14.3) 05/12/16 03:05 Hct 41.4 % (30.3-42.9) 05/12/16 03:05 MCV 83 fl (79-97) 05/12/16 03:05 MCH 27 pg (28-32) L 05/12/16 03:05 MCHC 32 % (30-34) 05/12/16 03:05 RDW 16.2 % (13.2-15.2) H 05/12/16 03:05 Plt Count 177 K/mm3 (140-440) 05/12/16 03:05 Lymph % (Auto) 28.0 % (13.4-35.0) 05/12/16 03:05 [place] % (Auto) 11.0 % (0.0-7.3) H 05/12/16 03:05 Eos % (Auto) 2.6 % (0.0-4.3) 05/12/16 03:05 Baso % (Auto) 1.0 % (0.0-1.8) 05/12/16 03:05 Lymph # 1.9 K/mm3 (1.2-5.4) 05/12/16 03:05 [place] # 0.8 K/mm3 (0.0-0.8) 05/12/16 03:05 Eos # 0.2 K/mm3 (0.0-0.4) 05/12/16 03:05 Baso # 0.1 K/mm3 (0.0-0.1) 05/12/16 03:05 Seg Neutrophils % 57.4 % (40.0-70.0) 05/12/16 03:05 Seg Neutrophils # 3.9 K/mm3 (1.8-7.7) 05/12/16 03:05 Sodium 145 mmol/L (137-145) 05/14/16 05:25 Potassium 3.6 mmol/L (3.6-5.0) 05/14/16 05:25 Chloride 100.2 mmol/L (98-107) 05/14/16 05:25 Carbon Dioxide 29 mmol/L (22-30) 05/14/16 05:25 Anion Gap 19 mmol/L 05/14/16 05:25 BUN 31 mg/dL (7-17) H 05/14/16 05:25 Creatinine 1.8 mg/dL (0.7-1.2) H 05/14/16 05:25 Estimated GFR 34 ml/min 05/14/16 05:25 BUN/Creatinine Ratio 17.22 % 05/14/16 05:25 Glucose 125 mg/dL (65-100) H 05/14/16 05:25 POC Glucose 143 (70-105) H 05/13/16 01:39 Calcium 9.5 mg/dL (8.4-10.2) 05/14/16 05:25 Troponin T 0.017 ng/mL (0.00-0.029) 05/12/16 03:05 NT-Pro-B Natriuret Pep 5184 pg/mL (0-900) H 05/12/16 03:45
[2016-05-15 05:33] LABS: BUN/Creatinine Ratio 18.82; Calcium 9.3 mg/dL (8.4-10.2); Chloride 98.8 mmol/L (98-107); Potassium 3.6 mmol/L (3.6-5.0)
[2016-05-15] MEDS: APRESOLINE PO SCH ×2 (05:55→16:09)
[2016-05-15] MEDS: LASIX IV SCH ×2 (05:56→19:21)
[2016-05-15] MEDS: HEPARIN SUB-Q SCH ×2 (05:59→16:09)
--- NOTE | 2016-05-15 08:45 | Progress Note ---
Assessment and Plan Acute on chronic systolic heart failure-->currently euvolemic Echo 04/2016: moderate LVH, EF 15-20%, normally functioning bioprosthetic AV, mild-moderate MR continue lasix, coreg, lisinopril, aldactone Cardiomyopathy s/p ICD/pacemaker CAD s/p PCI of RCA with BMS (09/2012) continue ASA Chronic kidney disease stable monitor renal indices Hypertension Hyperlipidemia Diabetes Hx. of aortic valve replacement (06/2013) Hx. of aortic aneurysm repair (06/2013) Stable cardiac status. Pt. may be discharged from a cardiac standpoint. Follow up appointment with Dr. Jaxon Churchill in the [place] office on on 05/22/16 at 1: 00pm. The patient has been seen in conjunction with Dr. Mcdermott who agrees with the assessment and plan of care. Subjective Date of service: 05/15/16 Principal diagnosis: acute on chronic systolic heart failure Interval history: The patient is resting in bed. No new complaints. Paced rhythm on the monitor. Objective Last Vital Signs Temp 98.8 F 05/15/16 07:36 Pulse 71 05/15/16 07:36 Resp 18 05/15/16 07:36 BP 137/70 05/15/16 07:36 Pulse Ox 99 05/15/16 10:00 - Physical Examination General: No Apparent Distress HEENT: Positive: PERRL, Normocephaly, Mucus Membranes Moist Neck: Positive: neck supple, trachea midline Cardiac: Positive: Reg Rate and Rhythm, S1/S2 Lungs: Positive: clear to auscultation Neuro: Positive: Grossly Intact Abdomen: Positive: Soft, Active Bowel Sounds. Negative: Tender Skin: Positive: Clear. Negative: Rash Extremities: Present: normal. Absent: edema - Labs and Meds Comprehensive Metabolic Panel 05/15/16 Range/Units 04:33 Sodium 140 (137-145) mmol/L Potassium 3.6 (3.6-5.0) mmol/L Chloride 98.8 (98-107) mmol/L Carbon Dioxide 31 H (22-30) mmol/L BUN 32 H (7-17) mg/dL Creatinine 1.7 H (0.7-1.2) mg/dL Glucose 124 H (65-100) mg/dL Calcium 9.3 (8.4-10.2) mg/dL - Imaging and Cardiology EKG: image reviewed Echo: report reviewed (04/2016: moderate LVH, EF 15-20%) - Telemetry EKG Rhythm: Paced Pacemaker: ventricular pacing w/capt
[2016-05-15] MEDS: BABY ASPIRIN PO SCH (10:51)
[2016-05-15] MEDS: ZESTRIL PO SCH (10:51)
[2016-05-15] MEDS: ALDACTONE PO SCH (10:51)
[2016-05-15] MEDS: COREG PO SCH (10:52)
--- NOTE | 2016-05-15 13:28 | Discharge Summary ---
Providers - Providers Date of Admission: 05/12/16 12:35 Date of discharge: 05/15/16 Attending physician: MICHELE STARK 05/12/16 13:46 Consult to Physician [CONS] Routine Consulting Provider: KALLI MART Reason For Exam: chf Place consult to:: kalli mart Notified:: y Was contact made?: Yes Primary care physician: TOÑO DOLAN Hospitalization Reason for admission: SOB Condition: Stable Pertinent studies: CXR Hospital course: Patient is a 70 year old female with chronic systolic heart failure, cardiomyopathy s/p AICD placement, whos was admitted for worsening shortness of breath, dyspnea on exertion, orthopnea. Diagnosted with acute exacerbation of heart failure and started on iv lasix along with BB and ACEI. Cardiology was consulted and another diuretic, spironolactone, was added. Her regimen was further adjusted by adding hydralazine. She improved gradually, was transitioned to po diuretics and discharged in stable condition. Close f/u with cardiology already scheduled. Discharge diagnosis: 1. Acute on chronic systolic heart failure 2. CM with EF 15-20% s/p AICD 3. Ao valve replacement 4. HTN urgency 5. CKD 6. Hyperlipidemia Disposition: DISCHARGED TO HOME OR SELFCARE Time spent for discharge: 35 min Core Measure Documentation - Palliative Care Palliative Care/ Comfort Measures: Not Applicable - Core Measures Any of the following diagnoses?: heart failure - Heart Failure Discharge Requirements HORTENCIA/ARB for LVSD if EF <40%: Yes Beta jose m at discharge: Yes Exam - Physical Exam Narrative exam: Patient seen and examined: - Constitutional Vitals: Temp Pulse Resp BP Pulse Ox 98.7 F 70 20 131/68 94 05/15/16 11:37 05/15/16 11:37 05/15/16 11:37 05/15/16 11:37 05/15/16 11:37 General appearance: Present: no acute distress, well-nourished - EENT Eyes: Present: PERRL, EOM intact. Absent: scleral icterus, conjunctival injection - Neck Neck: Present: supple, normal ROM. Absent: masses or JVD - Respiratory Respiratory effort: normal Respiratory: bilateral: CTA, negative: rales, rhonchi, wheezing - Cardiovascular Rhythm: regular Heart Sounds: Present: S1 & S2, systolic murmur - Extremities Extremities: no ischemia - Abdominal General gastrointestinal: Present: soft, non-tender, non-distended, normal bowel sounds - Integumentary Integumentary: Present: warm, dry. Absent: jaundice, rash - Musculoskeletal Musculoskeletal: strength equal bilaterally - Psychiatric Psychiatric: cooperative - Neurologic Neurologic: CNII-XII intact, no focal deficits Plan Activity: advance as tolerated Diet: low cholesterol, low salt, diabetic, renal Follow up with: TOÑO DOLAN MD [Primary Care Provider] - 3-5 Days KALLI MART MD [Staff Physician] - 05/22/16 1:00 pm Prescriptions: Aspirin [Aspirin BABY CHEW TAB] 81 mg PO QDAY #30 tab.chew Carvedilol [Coreg] 6.25 mg PO BID #60 tablet Furosemide [Lasix TAB] 40 mg PO DAILY@0600 #30 tablet hydrALAZINE [Apresoline TAB] 25 mg PO Q8HR #90 tablet Lisinopril [Zestril TAB] 2.5 mg PO QDAY #30 tablet Spironolactone [Aldactone] 25 mg PO QDAY #30 tablet
[2016-05-15 18:29] VITALS: BP 124/64
== END 2016-05-15 20:32 | disposition home or self-care (01) | DRG 291 ==
LOC: ED 01:44 → 4A 12:35
PROVIDERS: ADMIT Internal Medicine; ATTEND Internal Medicine
DX: I13.0 Hypertensive heart and chronic kidney disease with heart failure and stage 1 through stage 4 chronic kidney disease, or unspecified chronic kidney disease (principal); I50.23 Acute on chronic systolic (congestive) heart failure; I16.1 Hypertensive emergency; I42.9 Cardiomyopathy, unspecified; N18.3 Chronic kidney disease, stage 3 (moderate); I25.10 Atherosclerotic heart disease of native coronary artery without angina pectoris; E78.5 Hyperlipidemia, unspecified; Z90.710 Acquired absence of both cervix and uterus; Z90.89 Acquired absence of other organs; Z79.82 Long term (current) use of aspirin; Z82.49 Family history of ischemic heart disease and other diseases of the circulatory system; Z83.3 Family history of diabetes mellitus; Z95.810 Presence of automatic (implantable) cardiac defibrillator; Z95.0 Presence of cardiac pacemaker; Z95.4 Presence of other heart-valve replacement
CPT/HCPCS: 36415; 51702; 71020; 80048; 82962; 83880; 84484; 85025; 90686; 93005; 93010; 94760; 96374; 96375; J0360; J1644; J1940